=== PATIENT | male | born 1930 | race Caucasian/White ===

== ENCOUNTER 2018-02-22 18:39 | Inpatient (IN) | payer MEDICARE, OTHER ==
[~2018-02-22] VITALS: Ht 175.3 cm; Wt 86.2 kg
--- NOTE | ~2018-02-22 | CON ---
[address] [address] CONSULTATION Name: DANIELLA ANDRES Room: [address] IN .R.#: [id number] Admission: 02/22/18 Attend Phys: Femi Vogel MD Discharge: Date of : 32 Report #: [id number] THIS REPORT FOR: //name// CC: Andressa Vogel DATE OF SERVICE: 02/24/2018 REASON FOR CONSULTATION: Nausea, vomiting, abdominal pain and elevated lipase level. HISTORY OF PRESENT ILLNESS: This is an 88-year-old male, with history of constipation, whose reports that they have a lot of difficulty with the same at home. He has not had any bowel movements for the past 4 days and presented to hospital with nausea and vomiting. His reports that this had happened to him in the past one more time and once he got a bowel regimen, his symptoms went away. 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 The reports that this has been there for the past 8 years and has not changed in size by much. The patient is currently doing better and denies nausea and vomiting. He was able to eat a regular breakfast in the morning. A CT of abdomen and pelvis during this hospitalization showed some thickening of the small bowel, mainly in the right side of the abdomen. The patient denies any diarrhea, hematochezia or melena. PAST MEDICAL HISTORY: Significant for history of hypertension, gastroesophageal reflux disease, chronic constipation, dyslipidemia and chronic anticoagulation therapy. ALLERGIES: No known drug allergies. MEDICATIONS: Please refer to MAR. SOCIAL HISTORY: The patient is and lives at home. Denies tobacco or alcohol use. FAMILY HISTORY: Noncontributory. PHYSICAL EXAMINATION: VITAL SIGNS: Reveals blood pressure of 165/80, respirations 16, pulse 59, temperature 98.4. LUNGS: Clear. CARDIOVASCULAR: Regular. ABDOMEN: Large, soft, mildly tender to palpation in the epigastric region. [place] [address] CONSULTATION Name: DANIELLA ANDRES Room: [address] IN [facility]#: [id number] Admission: 02/22/18 Attend Phys: Femi Vogel MD Discharge: Date of : 32 Report #: [id number] LABORATORY DATA: Reveal sodium of 141, potassium 4.8, BUN is 13, creatinine 1.2, glucose is 102. AST is 18, ALT 17, alkaline phosphatase 72. Lipase on admission was 640. WBC is 4.9, hemoglobin is 12.2, platelets are 160. ASSESSMENT AND PLAN: The patient with symptoms of nausea, vomiting and abdominal pain, which has since admission has resolved. His liver function tests are all completely normal. He is known to have severe constipation in the past, which had caused similar symptoms. I think elevation of lipase is not pancreatitis and may be multifactorial as there is no evidence of pancreatitis per CT. Nevertheless, I will check his lipase again as he started his diet. If the patient does well, we will discharge him tomorrow. If he continues to have problem, we will consider a colonoscopy as he had thickening and inflammation in the small bowel. This was communicated to the patient and his and they are agreeable with plan. By: 1246 1936Navid Peter MD /nt
[2018-02-22 18:47] VITALS: BP 187/83
[2018-02-22] MEDS ORDERED: IMDUR 60 MG TAB60 M1 PO (18:51)
[2018-02-22] MEDS ORDERED: REQUIP3 MG PO (18:51)
[2018-02-22] MEDS ORDERED: ASPIR 8181 MG PO (18:51)
[2018-02-22] MEDS ORDERED: ELIQUIS5 MG PO (18:52)
[2018-02-22] MEDS ORDERED: TOPROL XL25 MG PO (18:52)
[2018-02-22] MEDS ORDERED: LOTENSIN10 MG PO (18:52)
[2018-02-22] MEDS ORDERED: CRESTOR40 MG PO (18:52)
[2018-02-22] MEDS ORDERED: ZANTAC 150MG T150 MG PO (18:53)
[2018-02-22 19:27] LABS: HEMOGLOBIN 14.1 gm/dL (14.0-18.0); MCH 30.6 pg (26.0-34.0); MCHC 33.7 g/dL (28.0-37.0); MCV 90.9 fL (80.0-100.0); MPV 8.2 fl. (7.2-11.1); NUCLEATED RBCS 0 /100WBC; PLATELET COUNT* 187 thou/uL (150-400); RBC 4.62 mil/uL (4.50-6.00); RDW-CV 13.3 % (10.5-14.5); WBC 7.5 thou/uL (4.0-11.0)
[2018-02-22 19:34] LABS: CALCIUM 8.4 mg/dL (8.5-10.1); CREATININE 1.2 mg/dL (0.6-1.3); POTASSIUM 4.5 mmol/L (3.5-5.1)
[2018-02-22 19:38] LABS: ALBUMIN 3.4 g/dL (3.4-5.0); TOTAL BILIRUBIN 0.6 mg/dL (<0.1-1.0); TOTAL PROTEIN 6.5 g/dL (6.4-8.2)
[2018-02-22 19:46] LABS: ABSOLUTE LYMPHOCYTES 0.9 thou/uL (0.8-5.3); ABSOLUTE MONOCYTES 0.2 thou/uL (0.0-1.2); ABSOLUTE NEUTROPHILS 6.5 thou/uL (1.6-8.1); PLATELET ESTIMATE ADEQUATE
[2018-02-22 20:37] LABS: INFLUENZA A ANTIGEN None Detected (None Detect); INFLUENZA B ANTIGEN None Detected (None Detect)
[2018-02-22 21:20] LABS: URINE BILIRUBIN NEGATIVE (Negative); URINE BLOOD NEGATIVE (Negative); URINE CLARITY CLEAR; URINE COLOR YELLOW; URINE GLUCOSE-RANDOM NEGATIVE (Negative); URINE KETONES NEGATIVE (Negative); URINE LEUKOCYTES-REFLEX NEGATIVE (Negative); URINE NITRITE-REFLEX NEGATIVE (Negative); URINE PROTEIN TRACE (Negative); URINE SPECIFIC GRAVITY 1.015 (1.005-1.030); URINE UROBILINOGEN 0.2 E.U./dl (0.2-1.0)
[2018-02-22 22:02] VITALS: BP 166/93
--- NOTE | 2018-02-23 05:31 | NUR ---
PT ARIVED ON UNIT AT 2215 ASSISTE TO ROOM ORIENTED TO SURROUNDINGS VS AND ASSESSMENT STABLE. PT VOICED NO COMPLAINTS AND SLEPT THROUGH THE NIGHT. WILL CONTINUE PLAN OF CARE.
[2018-02-23 07:50] VITALS: BP 132/87
--- NOTE | 2018-02-23 10:25 | EKG ---
[place] [address] ELECTROCARDIOGRAM REPORT Name: DANIELLA ANDRES Room: [address] IN .R.#: [id number] Admission: 02/22/18 Attend Phys: Femi Vogel MD Discharge: Date of : 32 Report #: [id number] THIS REPORT FOR: //name// [facility] ED Test Date: 2018-02-22 Test Time: 19:03:37 Pat Name: DANIELLA ANDRES Department: Room: [facility] Gender: M Beach Expert: AP : 1930 Requested By: Janette Junior Order Number: [id number] MD: Reynold Gardner Measurements Intervals [place] Rate: 65 P: 50 [place]: 183 QRS: 27 QRSD: 84 T: 21 QT: 423 QTc: 440 Interpretive Statements Sinus rhythm No previous ECG available for comparison Electronically Signed On 02-23-2018 10:24:58 SCREEN TENDER by Reynold Gardner [email or web address] <ELECTRONICALLY SIGNED> By: Reynold Gardner MD, LOCATED WITHIN [facility] 02/23/18 1024 02 02 Reynold Gardner MD, FACC /EPI
--- NOTE | 2018-02-23 14:06 | NUR ---
MINERAL OIL ENEMA GIVEN DIRECTED TO PATIENT. NO RETURN OF STOOL AT PRESENT TIME. AWATIING GI CONSULT. UPDATED ON PLAN OF CARE. PATIENT RESTING AT PRESENT TIME.
[2018-02-23 16:19] VITALS: BP 122/66
--- NOTE | 2018-02-23 18:26 | NUR ---
PATIENT HAS BEEN A/O X 4, SLIGHTLY FORGETFUL AT TIMES, [place]. PATIENT HAS DENIED N/V, OR ABDOMINAL PAIN. TOLERATING DIET. UP AD TORRES IN ROOM. IV FLUIDS CONTINUE TO INFUSE. PATIENT GIVEN MINERAL OIL WITHOUT ANY RESULTS. STARTED GOLYTELY THIS EVENING, GI CONSULT PENDING. PATIENT'S VITALS STABLE. AT BEDSIDE THROUGHOUT THE SHIFT, UPDATED ON ALL NEW ORDERS AND PLAN OF CARE. HOURLY ROUNDING COMPLETED. CALL LIGHT WITHIN REACH. WILL CONTINUE WITH PLAN OF CARE.
[2018-02-23 20:15] VITALS: BP 149/87
[2018-02-24 06:40] LABS: HEMATOCRIT 36.3 % (42.0-52.0); HEMOGLOBIN 12.2 gm/dL (14.0-18.0); MCH 30.8 pg (26.0-34.0); MCHC 33.7 g/dL (28.0-37.0); MCV 91.5 fL (80.0-100.0); RBC 3.97 mil/uL (4.50-6.00); RDW-CV 13.2 % (10.5-14.5); WBC 4.9 thou/uL (4.0-11.0)
[2018-02-24 06:44] LABS: CALCIUM 7.9 mg/dL (8.5-10.1); CREATININE 1.2 mg/dL (0.6-1.3); POTASSIUM 4.8 mmol/L (3.5-5.1)
[2018-02-24 06:55] LABS: ALBUMIN 2.9 g/dL (3.4-5.0); DIRECT BILIRUBIN 0.1 mg/dL (<0.1-0.3); MAGNESIUM 2.1 mg/dL (1.8-2.4); TOTAL BILIRUBIN 0.4 mg/dL (<0.1-1.0); TOTAL PROTEIN 5.5 g/dL (6.4-8.2)
--- NOTE | 2018-02-24 07:25 | NUR ---
PT SLEPT MOST OF SHIFT. ASSESSMENT DOCUMENTED. MEDS GIVEN PER E-APR. NO REPORTS OF PAIN OR NAUSEA THIS SHIFT. PT HAD SEVERAL LARGE LIQUID BOWEL MOVEMENTS THIS SHIFT. PT BECAME VERY WHEEZY THIS AM AND WAS HAVING DIFFICULTY CATCHING BREATH WHEN WALKING FROM BATHROOM TO BACK TO BED, DR NOTIFIED, ORDERS RECIEVED, PT SALINE LOCKED. WILL CONTINUE WITH PLAN OF CARE.
[2018-02-24 08:00] VITALS: BP 165/80
--- NOTE | 2018-02-24 16:28 | NUR ---
SHIFT NOTE - PRESENT AT BEDSIDE FOR MOST OF THIS SHIFT. GI WANTING PT TO STAY TONIGHT AND POSSIBLE DC IN AM. WILL CONTINUE TO MONITOR.
[2018-02-24 16:45] VITALS: BP 153/72
[2018-02-24 20:00] VITALS: BP 119/48
--- NOTE | 2018-02-25 05:49 | NUR ---
PT SLEPT MOST OF SHIFT. ASSESSMENT DOCUMENTED. MEDS GIVEN PER E-MAR. IV PATENT. PTS STAYED AT BEDSIDE ALL NIGHT. NO REPORTS OF PAIN OR NAUSEA. WILL CONTINUE WITH PLAN OF CARE.
[2018-02-25 08:00] VITALS: BP 174/78
[2018-02-25 14:23] VITALS: BP 174/78
--- NOTE | 2018-02-25 15:05 | NUR ---
DISCHARGE NOTE - REVIEWED DC PAPERS WITH PT AND SPOUSE. ALL BELONGINGS SENT WITH PT. NO QUESTIONS. IV REMOVED.
== END 2018-02-25 15:08 | disposition home or self-care (01) | DRG 439 ==
LOC: M.ERS 18:39 → M.3W 21:25 → M.TBA-ER 21:25 → M.3W 22:20
PROVIDERS: Internal Medicine; Nurse Practitioner Family; ADMIT Family Medicine
DX: K85.90 Acute pancreatitis without necrosis or infection, unspecified (principal); D68.59 Other primary thrombophilia; E44.1 Mild protein-calorie malnutrition; K21.9 Gastro-esophageal reflux disease without esophagitis; I10 Essential (primary) hypertension; E78.5 Hyperlipidemia, unspecified; K59.00 Constipation, unspecified; I48.91 Unspecified atrial fibrillation; I25.2 Old myocardial infarction; Z68.28 Body mass index [BMI] 28.0-28.9, adult; Z86.73 Personal history of transient ischemic attack (TIA), and cerebral infarction without residual deficits; Z95.5 Presence of coronary angioplasty implant and graft; Z90.49 Acquired absence of other specified parts of digestive tract; Z79.01 Long term (current) use of anticoagulants; Z79.82 Long term (current) use of aspirin; Z79.899 Other long term (current) drug therapy

== ENCOUNTER → 2018-07-10 | Outpatient (CLI) | payer MEDICARE, OTHER ==
[~2018-07-10] MED LIST: ASPIR 8181 MG PO; CRESTOR40 MG PO; ELIQUIS5 MG PO; IMDUR 60 MG TAB60 M1 PO; LOTENSIN10 MG PO; REQUIP3 MG PO; TOPROL XL25 MG PO; ZANTAC 150MG T150 MG PO
== END ==
LOC: M.MRI 10:57
DX: M19.072 Primary osteoarthritis, left ankle and foot (principal); Z87.39 Personal history of other diseases of the musculoskeletal system and connective tissue

== ENCOUNTER 2018-07-28 16:03 | Emergency (ER) | payer MEDICARE, OTHER ==
[~2018-07-28] VITALS: Ht 172.7 cm; Wt 88.0 kg
[2018-07-28 16:41] LABS: ABSOLUTE BASOPHILS 0.1 thou/uL (0.0-0.2); ABSOLUTE EOSINOPHILS 0.3 thou/uL (0.0-0.7); ABSOLUTE LYMPHOCYTES 1.5 thou/uL (0.8-5.3); ABSOLUTE MONOCYTES 0.6 thou/uL (0.0-1.2); ABSOLUTE NEUTROPHILS 2.4 thou/uL (1.6-8.1); BASOPHILS 1.8 %; EOSINOPHILS 7.1 %; HEMATOCRIT 37.7 % (42.0-52.0); HEMOGLOBIN 12.6 gm/dL (14.0-18.0); LYMPHOCYTES 30.3 %; MCH 30.1 pg (26.0-34.0); MCHC 33.3 g/dL (28.0-37.0); MCV 90.6 fL (80.0-100.0); MONOCYTES 11.4 %; MPV 8.2 fl. (7.2-11.1); NUCLEATED RBCS 0 /100WBC; PLATELET COUNT* 179 thou/uL (150-400); POLYS 49.4 %; RBC 4.17 mil/uL (4.50-6.00); RDW-CV 13.6 % (10.5-14.5); WBC 4.9 thou/uL (4.0-11.0)
[2018-07-28 16:47] LABS: CALCIUM 8.3 mg/dL (8.5-10.1); CREATININE 1.3 mg/dL (0.6-1.3); POTASSIUM 4.6 mmol/L (3.5-5.1)
[2018-07-28 16:51] LABS: ALBUMIN 3.3 g/dL (3.4-5.0); TOTAL BILIRUBIN 0.3 mg/dL (<0.1-1.0); TOTAL PROTEIN 6.2 g/dL (6.4-8.2)
[2018-07-28 17:44] VITALS: BP 130/94
== END 2018-07-28 17:44 | disposition home or self-care (01) ==
LOC: M.ERS 16:03
PROVIDERS: Nurse Practitioner Family
DX: R19.4 Change in bowel habit (principal); I10 Essential (primary) hypertension; E78.5 Hyperlipidemia, unspecified; Z90.49 Acquired absence of other specified parts of digestive tract

== ENCOUNTER 2019-04-01 16:19 | Inpatient (IN) | payer OTHER ==
[~2019-04-01] VITALS: Ht 167.6 cm; Wt 114.8 kg
[2019-04-01 16:33] VITALS: BP 196/85
[2019-04-01 18:20] LABS: INFLUENZA A ANTIGEN Negative (Negative); INFLUENZA B ANTIGEN Negative (Negative)
[2019-04-01 18:47] LABS: ABSOLUTE BASOPHILS 0.1 thou/uL (0.0-0.2); ABSOLUTE EOSINOPHILS 0.1 thou/uL (0.0-0.7); ABSOLUTE LYMPHOCYTES 0.3 thou/uL (0.8-5.3); ABSOLUTE MONOCYTES 0.6 thou/uL (0.0-1.2); ABSOLUTE NEUTROPHILS 4.7 thou/uL (1.6-8.1); BASOPHILS 1.2 %; HEMATOCRIT 38.4 % (42.0-52.0); HEMOGLOBIN 13.1 gm/dL (14.0-18.0); MCH 30.5 pg (26.0-34.0); MCHC 34.2 g/dL (28.0-37.0); MCV 89.1 fL (80.0-100.0); MONOCYTES 9.8 %; MPV 7.8 fl. (7.2-11.1); NUCLEATED RBCS 0 /100WBC; PLATELET COUNT* 168 thou/uL (150-400); RBC 4.31 mil/uL (4.50-6.00); RDW-CV 13.6 % (10.5-14.5); WBC 5.8 thou/uL (4.0-11.0)
[2019-04-01 19:06] LABS: CALCIUM 8.2 mg/dL (8.5-10.1); CREATININE 1.2 mg/dL (0.6-1.3); POTASSIUM 4.3 mmol/L (3.5-5.1)
[2019-04-01 19:08] LABS: URINE BILIRUBIN NEGATIVE (Negative); URINE BLOOD TRACE (Negative); URINE CLARITY CLEAR; URINE COLOR YELLOW; URINE GLUCOSE-RANDOM NEGATIVE (Negative); URINE KETONES NEGATIVE (Negative); URINE LEUKOCYTES-REFLEX NEGATIVE (Negative); URINE NITRITE-REFLEX NEGATIVE (Negative); URINE PROTEIN 2+ (Negative); URINE UROBILINOGEN 0.2 E.U./dl (0.2-1.0)
[2019-04-01 19:16] LABS: ALBUMIN 3.6 g/dL (3.4-5.0); TOTAL BILIRUBIN 0.8 mg/dL (<0.1-1.0); TOTAL PROTEIN 6.7 g/dL (6.4-8.2)
[2019-04-01 19:34] LABS: BACTERIA-REFLEX 1-9 Few /HPF (None Seen); CASTS None Seen /LPF (None Seen); CRYSTALS None Seen /LPF (None Seen); SQUAMOUS 0-3 Few /LPF (0-3); URINE RBC 0-2 Rare /HPF (0-2); URINE WBC-REFLEX 0-5 Rare /HPF (0-5)
[2019-04-01 22:20] VITALS: BP 162/74
[2019-04-01 22:30] VITALS: BP 153/76
[2019-04-02 04:30] VITALS: BP 174/73
[2019-04-02 08:00] VITALS: BP 161/67
[2019-04-02 16:08] VITALS: BP 110/83
[2019-04-02 16:24] VITALS: BP 152/88
--- NOTE | 2019-04-02 16:35 | EKG ---
[place] [address] ELECTROCARDIOGRAM REPORT Name: DANIELLA ANDRES Room: [address] ADM IN .R.#: [id number] Admission: 04/01/19 Attend Phys: Amol Sky Discharge: Date of : 32 Date of Service: 04/01/19 1808 Report #: [id number] THIS REPORT FOR: //name// [facility] ED Test Date: 2019-04-01 Test Time: 18:08:13 Pat Name: DANIELLA ANDRES Department: Room: [facility] Gender: M Caddie Supervisor: LEEROY : 1930 Requested By: Ana Campos Order Number: [id number] MD: Sinan Moise Measurements Intervals [place] Rate: 64 P: 224 [place]: 65 QRS: 35 QRSD: 112 T: 42 QT: 400 QTc: 413 Interpretive Statements Sinus or ectopic atrial rhythm Short AL interval Probable left atrial enlargement Borderline intraventricular conduction delay Compared to ECG 02/22/2018 19:03:37 Ectopic atrial rhythm now present Short AL interval now present ST (T wave) deviation now present Electronically Signed On 04-02-2019 16:34:02 CASINO FLOORPERSON by Sinan Moise [email or web address] <ELECTRONICALLY SIGNED> By: Sinan Moise MD, [facility] 04/02/19 1634 07 180 Sinan Moise MD, [facility] /EPI
[2019-04-02 20:00] VITALS: BP 101/72
[2019-04-02 20:53] VITALS: BP 127/76
[2019-04-03 00:18] VITALS: BP 110/61
[2019-04-03 04:05] LABS: HEMATOCRIT 38.4 % (42.0-52.0); MCH 30.3 pg (26.0-34.0); MCHC 33.9 g/dL (28.0-37.0); MCV 89.4 fL (80.0-100.0); MPV 8.2 fl. (7.2-11.1); RBC 4.29 mil/uL (4.50-6.00); RDW-CV 13.7 % (10.5-14.5); WBC 7.3 thou/uL (4.0-11.0)
[2019-04-03 04:32] VITALS: BP 120/78
[2019-04-03 05:07] LABS: ALBUMIN 3.2 g/dL (3.4-5.0); CALCIUM 8.4 mg/dL (8.5-10.1); CREATININE 1.3 mg/dL (0.6-1.3); MAGNESIUM 1.9 mg/dL (1.8-2.4); PHOSPHORUS* 3.3 mg/dL (2.5-4.9); POTASSIUM 3.2 mmol/L (3.5-5.1)
[2019-04-03 08:00] VITALS: BP 151/72
--- NOTE | 2019-04-03 10:43 | EKG ---
[place] [address] ELECTROCARDIOGRAM REPORT Name: DANIELLA ANDRES Room: [address] ADM IN [facility].#: [id number] Admission: 04/01/19 Attend Phys: Amol Sky Discharge: Date of : 32 Date of Service: 04/02/19 1415 Report #: [id number] THIS REPORT FOR: //name// [facility] Test Date: 2019-04-02 Test Time: 14:15:27 Pat Name: DANIELLA ANDRES Department: Room: [address] Gender: M Track Coach: : 1930 Requested By: Eric Pope Order Number: [id number] Dae MD: Sinan Moise Measurements Intervals [place] Rate: 133 P: [place]: QRS: 39 QRSD: 91 T: 214 QT: 260 QTc: 387 Interpretive Statements Atrial fibrillation Abnormal R-wave progression, early transition Repolarization abnormality, prob rate related Electronically Signed On 04-03-2019 10:41:56 APPEALS REPRESENTATIVE by Sinan Moise [email or web address] <ELECTRONICALLY SIGNED> By: Sinan Moise MD, FACC 04/03/19 1041 1415 1415 Sinan Moise MD, [facility] /EPI
[2019-04-03 13:30] VITALS: BP 191/82
--- NOTE | 2019-04-03 13:36 | 2DMMODE ---
[place] [address] 2 D/M-MODE ECHOCARDIOGRAM Name: DANIELLA ANDRES Room: [address] IN [place].#: [id number] Admission: 04/01/19 Attend Phys: Amol Sky Discharge: Date of : 32 Date of Service: 04/03/19 1335 Report #: [id number] THIS REPORT FOR: cc: Andressa Douglas Maggie M. DO Blick, David R. MD [facility] ~ APPROVED REPORT Study performed: 04/03/2019 10:42:25 EXAM: Comprehensive 2D, Doppler, and color-flow Echocardiogram Patient Location: In-Patient Room #: 226 Status: routine BSA: 2.24 HR: 72 bpm BP: 156/66 mmHg Rhythm: NSR Other Information Study Quality: Adequate Indications Atrial Fibrillation 2D Dimensions IVSd: 13.62 (7-11mm) LVOT Diam: 22.60 (18-24mm) LVDd: 47.12 mm PWd: 13.78 (7-11mm) Ascending Ao: 32.35 (22-36mm) LVDs: 21.91 (25-40mm) Aortic Root: 35.83 mm Volumes Left Atrial Volume (Systole) LA ESV Index: 22.20 mL/m2 Aortic Valve AoV Peak Keny.: 1.67 m/s AO Peak Gr.: 11.22 mmHg LVOT Max P.82 mmHg AO Mean Gr.: 6.21 mmHg LVOT Mean P.39 mmHg LVOT Max V: 1.57 m/s AO V2 VTI: 31.67 cm LVOT Mean V: 0.94 m/s LOUISE (VTI): 4.11 cm2 LVOT V1 VTI: 32.48 [place] [address] 2 D/M-MODE ECHOCARDIOGRAM Name: DANIELLA ANDRES Room: [address] IN .R.#: [id number] Admission: 04/01/19 Attend Phys: Amol Sky Discharge: Date of : 32 Date of Service: 04/03/19 1335 Report #: [id number] Mitral Valve E/A Ratio: 0.77 MV Decel. Time: 279.71 ms MV E Max Keny.: 0.66 m/s MV PHT: 81.12 ms MVA (PHT): 2.71 cm2 Pulmonary Valve PV Peak Keny.: 0.84 m/s PV Peak Gr.: 2.84 mmHg Left Ventricle The left ventricle is normal size. endocardium not well visualized Mild concentric left ventricular hypertrophy. Left ventricular systolic function is normal. The left ventricular ejection fraction is within the normal range. LVEF is 55-60%. Grade I - abnormal relaxation pattern. Right Ventricle The right ventricle is normal size. The right ventricular systolic function is normal. Atria The left atrium size is normal. The right atrium size is normal. Aortic Valve The aortic valve is normal in structure. trace aortic regurgitation is present. There is no aortic valvular stenosis. Mitral Valve The mitral valve is normal in structure. There is no mitral valve regurgitation noted. No evidence of mitral valve stenosis. Tricuspid Valve The tricuspid valve is normal in structure. There is no tricuspid valve regurgitation noted. Pulmonic Valve Pulmonic valve is not well visualized. There is no pulmonic valvular regurgitation. Great Vessels The aortic root is normal in size. IVC is not well [place] [address] 2 D/M-MODE ECHOCARDIOGRAM Name: DANIELLA ANDRES Room: [address] IN [facility]#: [id number] Admission: 04/01/19 Attend Phys: Amol Sky Discharge: Date of : 32 Date of Service: 04/03/19 1335 Report #: [id number] There is no pericardial effusion. <Conclusion> LVEF is 55-60%. Mild concentric left ventricular hypertrophy. <ELECTRONICALLY SIGNED> By: Sinan Moise MD, FAC 04/03/19 1335 34 Sinan Moise MD, [facility] /INF
--- NOTE | 2019-04-03 15:16 | CON ---
[facility] [address] [place] [address] CONSULTATION Name: DANIELLA ANDRES Room: [address] IN M.R.#: [id number] Admission: 04/01/19 Attend Phys: Seth No Discharge: Date of : 32 Report #: [id number] THIS REPORT FOR: //name// cc: Andressa Douglas Maggie M. DO ~ THIS REPORT FOR: //name// CC: Andressa Sky DATE OF SERVICE: 04/03/2019 CARDIOLOGY CONSULTATION HISTORY OF PRESENT ILLNESS: The patient is an 89-year-old white male who I was asked to see in the hospital after he had an episode of atrial fibrillation. The patient has an extensive and complicated past medical history. Most of his care had been performed in [place], [place]. He and his previously lived in [place], [place], but moved to the [place] area about a year ago to live next door to their daughter. The patient is not very active because of his age and uses a walker. According to , he had a previous coronary stent placed years ago. Following knee surgery, he apparently had a heart attack and had another stent placed. He has had no recent chest pain. He has been on Eliquis, although the patient and his denied any history of an irregular heartbeat, need for cardioversion or atrial fibrillation. The patient was doing well until 2 days ago had been vomiting. He then became short of breath and a cough. He went to see his doctor 2 days ago and was sent to the Emergency Room and admitted. He was felt to have pneumonia. Last night on the monitor, the patient went into atrial fibrillation with rapid ventricular response rate. He was placed on IV diltiazem. He then converted to sinus rhythm. I was asked to see him for further evaluation and treatment. PAST MEDICAL HISTORY: Significant for ankle surgery, knee surgery. He has had cholecystectomy. MEDICATIONS: On admission included aspirin, Imdur, Requip, Eliquis, metoprolol, Crestor, Lotensin, ranitidine. ALLERGIES: He had no known drug allergies. FAMILY HISTORY: Negative for heart disease. SOCIAL HISTORY: He is . He and his live now in [place]. No smoking or alcohol abuse. REVIEW OF SYSTEMS: He apparently has had a previous [place] [address] CONSULTATION Name: DANIELLA ANDRES Room: [address]#: [id number] Admission: 04/01/19 Attend Phys: Seth No Discharge: Date of : 32 Report #: [id number] asthma, liver disease, kidney disease, cancer, psychiatric illness. PHYSICAL EXAMINATION: GENERAL: Revealed an elderly male, lying in bed, appeared in mild respiratory distress. VITAL SIGNS: He had a blood pressure of 130/80, pulse is 90. He is afebrile. HEENT: He was anicteric. Conjunctivae are pink. Mucous membranes were moist. NECK: Veins do not appear distended. CHEST: Revealed expiratory wheezes. CARDIAC: Regular rate and rhythm, no murmur. ABDOMEN: Soft. EXTREMITIES: Had no edema. No posterior tibial pulse palpated. SKIN: Cool and dry. NEUROLOGIC: Nonfocal. RADIOLOGICAL DATA: His ECG on admission showed a sinus rhythm, nonspecific ST-segment changes. On the monitor last night, he went into rapid atrial fibrillation. He is now in sinus rhythm. Additional workup included a portable chest x-ray on admission that showed no acute abnormality. He had a CT scan of the head without contrast because of his previous stroke that showed atrophy, previous infarction, small vessel disease. LABORATORY DATA: Sodium 141, potassium 3.2, BUN 28, creatinine 1.3. Liver function studies were normal. Troponin 0.06. BNP 2791. TSH 0.4. White blood cell count 7.3, hemoglobin 13.1. IMPRESSION AND RECOMMENDATIONS: 1. Bronchitis. The patient noted to be wheezing. 2. Coronary artery disease. Previous stent. No recent angina. Since the patient is on Eliquis, I would not recommend aspirin. Since the patient is having no significant angina. I am not sure that he needs Isordil at this time. 3. Hypertension. The patient is on an UMER inhibitor and beta-joann. 4. Hyperlipidemia. The patient is on a statin drug. 5. History of atrial fibrillation. I would consider switching the patient from metoprolol to sotalol. The patient is anticoagulated with Eliquis. 6. Hard of hearing. <ELECTRONICALLY SIGNED> By: Sinan Moise MD, FACC 04/03/19 1516 0829 0900David Macrina Moise MD, FACC /nt
[2019-04-03 17:35] VITALS: BP 180/72
[2019-04-03 20:20] VITALS: BP 136/73
[2019-04-04] VITALS (7 sets, daily range): BP systolic 133–160; BP diastolic 48–98
--- NOTE | 2019-04-04 12:51 | EKG ---
[place] [address] ELECTROCARDIOGRAM REPORT Name: DANIELLA ANDRES Room: [address] ADM IN ..#: [id number] Admission: 04/01/19 Attend Phys: Amol Sky Discharge: Date of : 32 Date of Service: 04/04/19 1050 Report #: [id number] THIS REPORT FOR: //name// [facility] Test Date: 2019-04-04 Test Time: 10:50:06 Pat Name: DANIELLA ANDRES Department: Room: [facility] Gender: M Mangle Catcher: Patti : 1930 Requested By: Sinan Moise Order Number: [id number] Dae MD: Sinan Moise Measurements Intervals [place] Rate: 63 P: 51 [place]: 176 QRS: 22 QRSD: 87 T: 44 QT: 471 QTc: 483 Interpretive Statements Sinus rhythm Inferior infarct, old Baseline wander in lead(s) V3 Compared to ECG 04/02/2019 14:15:27 Atrial fibrillation no longer present Early repolarization no longer present Electronically Signed On 04-04-2019 12:50:49 FLIGHT OPERATION COORDINATOR by Sinan Moise [email or web address] <ELECTRONICALLY SIGNED> By: Sinan Moise MD, FACC 04/04/19 1250 1050 1050 Sinan Moise MD, FACC /EPI
[2019-04-05 05:00] VITALS: BP 133/57
[2019-04-05 05:09] LABS: HEMATOCRIT 39.2 % (42.0-52.0); HEMOGLOBIN 13.4 gm/dL (14.0-18.0); MCH 30.6 pg (26.0-34.0); MCHC 34.3 g/dL (28.0-37.0); MCV 89.1 fL (80.0-100.0); MPV 8.3 fl. (7.2-11.1); RBC 4.39 mil/uL (4.50-6.00); RDW-CV 13.2 % (10.5-14.5); WBC 2.2 thou/uL (4.0-11.0)
[2019-04-05 05:36] LABS: ALBUMIN 3.1 g/dL (3.4-5.0); CALCIUM 8.5 mg/dL (8.5-10.1); CREATININE 1.4 mg/dL (0.6-1.3); MAGNESIUM 2.2 mg/dL (1.8-2.4); PHOSPHORUS* 4.4 mg/dL (2.5-4.9); POTASSIUM 4.8 mmol/L (3.5-5.1)
[2019-04-05 08:00] VITALS: BP 157/78
--- NOTE | 2019-04-05 09:47 | EKG ---
[place] [address] ELECTROCARDIOGRAM REPORT Name: DANIELLA ANDRES Room: [address] ADM IN ..#: [id number] Admission: 04/01/19 Attend Phys: Amol Sky Discharge: Date of : 32 Date of Service: 04/05/1931 Report #: [id number] THIS REPORT FOR: //name// [facility] Test Date: 2019-04-05 Test Time: 08:33:14 Pat Name: DANIELLA ANDRES Department: Room: [address] Gender: M Gypsum Block Setter: SHERI : 1930 Requested By: Sinan Moise Order Number: [id number] Dae MD: Sinan Moise Measurements Intervals [place] Rate: 57 P: 52 [place]: 176 QRS: 19 QRSD: 109 T: 29 QT: 502 QTc: 489 Interpretive Statements Sinus rhythm nonspecific st changes Borderline prolonged QT interval Compared to ECG 04/04/2019 10:50:06 no change Electronically Signed On 04-05-2019 9:46:15 SNATH HANDLE ASSEMBLER by Sinan Moise [email or web address] <ELECTRONICALLY SIGNED> By: Sinan Moise MD, FAC 04/05/19 0946 2 2 Sinan Moise MD, [facility] /EPI
[2019-04-05 12:00] VITALS: BP 123/59
[2019-04-05] MEDS ORDERED: CEFDINIR300 MG PO (13:43)
[2019-04-05] MEDS ORDERED: SORINE 80 MG TA80 M1 PO (13:43)
[2019-04-05] MEDS ORDERED: FLONASE 0.05%50 MCG NASAL (13:43)
[2019-04-05] MEDS ORDERED: CLARITIN10 M2 PO (13:43)
[2019-04-05] MEDS ORDERED: MUCINEX600 MG PO (13:43)
[2019-04-05] MEDS ORDERED: MEDROL DOSPAK21 TA1 PO (13:43)
[2019-04-05] MEDS ORDERED: LEVALBUTER1.25 MG/0. INH (13:43)
[2019-04-05] MEDS ORDERED: LASIX 40 MG TAB40 MG PO (13:51)
[2019-04-05] MEDS ORDERED: K-DUR 20 MEQ T20 MEQ PO (13:51)
[2019-04-05 16:56] VITALS: BP 123/59
[2019-04-05 17:01] VITALS: BP 99/58
[2019-04-09 07:13] LABS: ADENOVIRUS Negative (Negative); INFLUENZA A Positive (Negative); INFLUENZA B Negative (Negative); METAPNEUMOVIRUS Negative (Negative); PARAINFLUENZA 1 Negative (Negative); PARAINFLUENZA 2 Negative (Negative); PARAINFLUENZA 3 Negative (Negative); RHINOVIRUS Negative (Negative); RSV A Negative (Negative); RSV B Negative (Negative)
== END 2019-04-05 17:48 | DRG 291 ==
LOC: M.ERS 16:19 → M.TBA-ER 20:01 → M.2W 20:01
PROVIDERS: Family Medicine; Nurse Practitioner Family; Physician Assistant; ADMIT Internal Medicine
DX: I13.0 Hypertensive heart and chronic kidney disease with heart failure and stage 1 through stage 4 chronic kidney disease, or unspecified chronic kidney disease (principal); J18.9 Pneumonia, unspecified organism; J96.01 Acute respiratory failure with hypoxia; I50.33 Acute on chronic diastolic (congestive) heart failure; I69.354 Hemiplegia and hemiparesis following cerebral infarction affecting left non-dominant side; I48.20 Chronic atrial fibrillation, unspecified; I73.9 Peripheral vascular disease, unspecified; E78.5 Hyperlipidemia, unspecified; Z96.651 Presence of right artificial knee joint; J40 Bronchitis, not specified as acute or chronic; I25.10 Atherosclerotic heart disease of native coronary artery without angina pectoris; N18.9 Chronic kidney disease, unspecified; G25.81 Restless legs syndrome; J06.9 Acute upper respiratory infection, unspecified; F03.90 Unspecified dementia, unspecified severity, without behavioral disturbance, psychotic disturbance, mood disturbance, and anxiety; Z79.82 Long term (current) use of aspirin; Z95.1 Presence of aortocoronary bypass graft; Z79.51 Long term (current) use of inhaled steroids; Z79.899 Other long term (current) drug therapy; Z79.01 Long term (current) use of anticoagulants; Z95.5 Presence of coronary angioplasty implant and graft; I25.2 Old myocardial infarction; Z90.49 Acquired absence of other specified parts of digestive tract; Z79.2 Long term (current) use of antibiotics; Z28.21 Immunization not carried out because of patient refusal

== ENCOUNTER 2019-04-30 15:38 | Inpatient (IN) | payer OTHER ==
[~2019-04-30] VITALS: Ht 172.7 cm; Wt 88.9 kg
[~2019-04-30 15:38] MED LIST changes: +CEFDINIR300 MG PO; +CLARITIN10 M2 PO; +FLONASE 0.05%50 MCG NASAL; +K-DUR 20 MEQ T20 MEQ PO; +LASIX 40 MG TAB40 MG PO; +LEVALBUTER1.25 MG/0. INH; +MEDROL DOSPAK21 TA1 PO; +MUCINEX600 MG PO; +SORINE 80 MG TA80 M1 PO
[2019-04-30 15:41] VITALS: BP 203/85
[2019-04-30 16:20] LABS: INFLUENZA A ANTIGEN Negative (Negative); INFLUENZA B ANTIGEN Negative (Negative)
[2019-04-30] MEDS ORDERED: LASIX 40 MG TAB40 MG PO (16:21)
[2019-04-30 16:29] LABS: HEMATOCRIT 35.2 % (42.0-52.0); MCH 30.8 pg (26.0-34.0); MCHC 34.1 g/dL (28.0-37.0); MCV 90.2 fL (80.0-100.0); MPV 7.9 fl. (7.2-11.1); NUCLEATED RBCS 0 /100WBC; PLATELET COUNT* 146 thou/uL (150-400); RDW-CV 13.7 % (10.5-14.5); WBC 4.6 thou/uL (4.0-11.0)
[2019-04-30 16:38] LABS: APTT 25.1 Seconds (25.0-31.3); INR 1.1; PROTIME 11.5 Seconds (9.20-11.50)
[2019-04-30 16:47] LABS: CREATININE 1.2 mg/dL (0.6-1.3)
[2019-04-30 16:58] LABS: ALBUMIN 3.1 g/dL (3.4-5.0); TOTAL BILIRUBIN 0.4 mg/dL (<0.1-1.0); TOTAL PROTEIN 6.1 g/dL (6.4-8.2)
[2019-04-30 17:03] LABS: ABSOLUTE EOSINOPHILS 0.7 thou/uL (0.0-0.7); ABSOLUTE LYMPHOCYTES 1.3 thou/uL (0.8-5.3); ABSOLUTE MONOCYTES 0.3 thou/uL (0.0-1.2); ABSOLUTE NEUTROPHILS 2.2 thou/uL (1.6-8.1); PLATELET ESTIMATE ADEQUATE; POIKILOCYTOSIS 1+
[2019-04-30 19:07] VITALS: BP 189/85
[2019-04-30 20:00] VITALS: BP 185/80
[2019-05-01] VITALS: BP 181/69
[2019-05-01 04:00] VITALS: BP 170/81
[2019-05-01 08:00] VITALS: BP 176/112
--- NOTE | 2019-05-01 09:25 | EKG ---
[place] [address] ELECTROCARDIOGRAM REPORT Name: DANIELLA ANDRES Room: [address] ADM IN ..#: [id number] Admission: 04/30/19 Attend Phys: Do Camacho, Discharge: Date of : 32 Date of Service: 04/30/19 1546 Report #: [id number] THIS REPORT FOR: //name// [facility] ED Test Date: 2019-04-30 Test Time: 15:46:57 Pat Name: DANIELLA ANDRES Department: Room: [facility] Gender: M Cargo Supervisor: KENNEDY : 1930 Requested By: Amol Handy Order Number: [id number] MD: Sinan Moise Measurements Intervals [place] Rate: 54 P: [place]: QRS: 22 QRSD: 108 T: 33 QT: 453 QTc: 430 Interpretive Statements sinus bradycardia Compared to ECG 04/05/2019 08:33:14 ST (T wave) deviation no longer present Electronically Signed On 05-01-2019 9:23:55 CDT by Sinan Moise [email or web address] <ELECTRONICALLY SIGNED> By: Sinan Moise MD, FACC 05/01/19 0923 1546 1546 Sinan Moise MD, [facility] /EPI
[2019-05-01 12:20] VITALS: BP 146/77
[2019-05-01 16:47] VITALS: BP 135/66
[2019-05-01 20:00] VITALS: BP 132/72
[2019-05-02] VITALS: BP 135/95
[2019-05-02 04:00] VITALS: BP 171/79
[2019-05-02 05:44] LABS: HEMOGLOBIN 12.7 gm/dL (14.0-18.0); MCH 30.9 pg (26.0-34.0); MCHC 34.4 g/dL (28.0-37.0); MPV 8.7 fl. (7.2-11.1); RBC 4.11 mil/uL (4.50-6.00); RDW-CV 13.6 % (10.5-14.5); WBC 9.7 thou/uL (4.0-11.0)
[2019-05-02 06:01] LABS: ALBUMIN 3.3 g/dL (3.4-5.0); CALCIUM 8.4 mg/dL (8.5-10.1); CREATININE 1.6 mg/dL (0.6-1.3); MAGNESIUM 2.2 mg/dL (1.8-2.4); POTASSIUM 4.1 mmol/L (3.5-5.1); TOTAL BILIRUBIN 0.3 mg/dL (<0.1-1.0); TOTAL PROTEIN 6.4 g/dL (6.4-8.2)
--- NOTE | 2019-05-02 08:51 | EKG ---
[place] [address] ELECTROCARDIOGRAM REPORT Name: DANIELLA ANDRES Room: [address] ADM IN ..#: [id number] Admission: 04/30/19 Attend Phys: Do Camacho, Discharge: Date of : 32 Date of Service: 05/01/19 1010 Report #: [id number] THIS REPORT FOR: //name// [facility] Test Date: 2019-05-01 Test Time: 10:10:07 Pat Name: DANIELLA ANDRES Department: Room: [facility] Gender: M Transportation Mechanic: 1883 : 1930 Requested By: Do Camacho Order Number: [id number] Dae MD: Sinan Moise Measurements Intervals [place] Rate: 64 P: 56 [place]: 193 QRS: 27 QRSD: 98 T: 29 QT: 460 QTc: 475 Interpretive Statements Sinus rhythm Compared to ECG 04/30/2019 15:46:57 Sinus bradycardia no longer present Electronically Signed On 05-02-2019 8:50:14 CDT by Sinan Moise [email or web address] <ELECTRONICALLY SIGNED> By: Sinan Moise MD, FACC 05/02/19 0850 1010 1010 Sinan Moise MD, [facility] /EPI
--- NOTE | 2019-05-02 11:07 | EKG ---
[place] [address] ELECTROCARDIOGRAM REPORT Name: DANIELLA ANDRES Room: [address] ADM IN .R.#: [id number] Admission: 04/30/19 Attend Phys: Do Camacho, Discharge: Date of : 32 Date of Service: 05/02/19 0406 Report #: [id number] THIS REPORT FOR: //name// [facility] Test Date: 2019-05-02 Test Time: 04:06:25 Pat Name: DANIELLA ANDRES Department: Room: [address] Gender: M Metallographic Technician: CORTNEY : 1930 Requested By: Do Camacho Order Number: [id number] Dae MD: Sinan Moise Measurements Intervals [place] Rate: 59 P: [place]: QRS: 36 QRSD: 143 T: 52 QT: 513 QTc: 509 Interpretive Statements sinus bradycardia artifact noted Compared to ECG 05/01/2019 10:10:07 no change Electronically Signed On 05-02-2019 11:06:11 CDT by Sinan Moise [email or web address] <ELECTRONICALLY SIGNED> By: Sinan Moise MD, FAC 05/02/19 1106 0406 0406 Sinan Moise MD, [facility] /EPI
[2019-05-02 12:07] VITALS: BP 161/66
[2019-05-02 17:32] VITALS: BP 157/82
[2019-05-02 20:30] VITALS: BP 123/69
[2019-05-03] VITALS: BP 165/79
[2019-05-03 04:00] VITALS: BP 185/78
[2019-05-03 04:20] LABS: ABSOLUTE LYMPHOCYTES 0.8 thou/uL (0.8-5.3); ABSOLUTE MONOCYTES 0.5 thou/uL (0.0-1.2); ABSOLUTE NEUTROPHILS 6.5 thou/uL (1.6-8.1); BASOPHILS 0.1 %; HEMATOCRIT 35.4 % (42.0-52.0); HEMOGLOBIN 12.3 gm/dL (14.0-18.0); LYMPHOCYTES 9.6 %; MCH 30.8 pg (26.0-34.0); MCHC 34.6 g/dL (28.0-37.0); MCV 88.9 fL (80.0-100.0); MONOCYTES 6.6 %; MPV 8.6 fl. (7.2-11.1); NUCLEATED RBCS 0 /100WBC; PLATELET COUNT* 158 thou/uL (150-400); POLYS 83.7 %; RBC 3.98 mil/uL (4.50-6.00); RDW-CV 13.7 % (10.5-14.5); WBC 7.8 thou/uL (4.0-11.0)
[2019-05-03 04:39] LABS: ALBUMIN 3.2 g/dL (3.4-5.0); CREATININE 1.5 mg/dL (0.6-1.3); POTASSIUM 4.5 mmol/L (3.5-5.1); TOTAL BILIRUBIN 0.4 mg/dL (<0.1-1.0); TOTAL PROTEIN 6.1 g/dL (6.4-8.2)
[2019-05-03 08:00] VITALS: BP 146/68
--- NOTE | 2019-05-03 10:01 | EKG ---
[place] [address] ELECTROCARDIOGRAM REPORT Name: DANIELLA ANDRES Room: [address] ADM IN .R.#: [id number] Admission: 04/30/19 Attend Phys: Do Camacho, Discharge: Date of : 32 Date of Service: 05/03/19 0717 Report #: [id number] THIS REPORT FOR: //name// [facility] Test Date: 2019-05-03 Test Time: 07:17:28 Pat Name: DANIELLA ANDRES Department: Room: [address] Gender: M Aircraft Sales Representative: YULIET : 1930 Requested By: Amol Sky Order Number: [id number] Dae MD: Sinan Moise Measurements Intervals [place] Rate: 48 P: 66 [place]: 176 QRS: 38 QRSD: 105 T: 44 QT: 541 QTc: 484 Interpretive Statements Sinus bradycardia Consider left atrial enlargement Borderline prolonged QT interval Compared to ECG 05/02/2019 04:06:25 No significant changes Electronically Signed On 05-03-2019 9:59:48 CDT by Sinan Moise [email or web address] <ELECTRONICALLY SIGNED> By: Sinan Moise MD, [facility] 05/03/19 0959 07 6 Sinan Moise MD, [facility] /EPI
[2019-05-03 11:48] VITALS: BP 179/82
[2019-05-03 17:54] VITALS: BP 159/73
[2019-05-03 20:30] VITALS: BP 133/70
[2019-05-04 00:44] VITALS: BP 179/87
[2019-05-04 04:00] VITALS: BP 168/89
[2019-05-04 08:00] VITALS: BP 164/71
[2019-05-04 08:43] LABS: HEMOGLOBIN 12.8 gm/dL (14.0-18.0); MCH 30.7 pg (26.0-34.0); MCHC 34.6 g/dL (28.0-37.0); MCV 88.9 fL (80.0-100.0); RBC 4.16 mil/uL (4.50-6.00); RDW-CV 13.6 % (10.5-14.5); WBC 7.4 thou/uL (4.0-11.0)
[2019-05-04 08:59] LABS: ALBUMIN 3.1 g/dL (3.4-5.0); CALCIUM 7.8 mg/dL (8.5-10.1); CREATININE 1.4 mg/dL (0.6-1.3); POTASSIUM 4.2 mmol/L (3.5-5.1); TOTAL BILIRUBIN 0.5 mg/dL (<0.1-1.0); TOTAL PROTEIN 5.8 g/dL (6.4-8.2)
[2019-05-04] MEDS ORDERED: AZITHROMYCIN500 MG PO (13:24)
[2019-05-04] MEDS ORDERED: PLAQUENIL200 MG PO (13:25)
[2019-05-04 13:58] VITALS: BP 164/71
== END 2019-05-04 14:23 | disposition home or self-care (01) | DRG 177 ==
LOC: M.ERS 15:38 → M.2W 16:42 → M.TBA-ER 16:42 → M.2W 19:40
PROVIDERS: Family Medicine; Internal Medicine; ADMIT Internal Medicine
DX: J15.6 Pneumonia due to other Gram-negative bacteria (principal); J96.01 Acute respiratory failure with hypoxia; J44.1 Chronic obstructive pulmonary disease with (acute) exacerbation; N17.9 Acute kidney failure, unspecified; E44.0 Moderate protein-calorie malnutrition; J44.0 Chronic obstructive pulmonary disease with (acute) lower respiratory infection; I10 Essential (primary) hypertension; E78.5 Hyperlipidemia, unspecified; Z96.651 Presence of right artificial knee joint; G25.81 Restless legs syndrome; Z68.29 Body mass index [BMI] 29.0-29.9, adult; Z90.49 Acquired absence of other specified parts of digestive tract; Z95.1 Presence of aortocoronary bypass graft; I25.2 Old myocardial infarction; Z95.5 Presence of coronary angioplasty implant and graft; Z79.899 Other long term (current) drug therapy

== ENCOUNTER 2019-12-29 08:22 | Inpatient (IN) | payer OTHER ==
[~2019-12-29] VITALS: Ht 167.6 cm; Wt 85.2 kg
--- NOTE | ~2019-12-29 | CON ---
[address] [address] CONSULTATION Name: DANIELLA ANDRES Room: [address] IN M.R.#: [id number] Admission: 12/29/19 Attend Phys: Seth No Discharge: Date of : 32 Report #: [id number] THIS REPORT FOR: //name// cc: Andressa Douglas Maggie M. DO ~ DATE OF SERVICE: 12/30/2019 Please note at the time of this dictation, the patient was seen and physically examined by myself. REASON FOR CONSULTATION: Abdominal pain, constipation and abnormal CT. HISTORY OF PRESENT ILLNESS: This is an 89-year-old male who presented to the Emergency Room with nausea, vomiting and constipation followed with diarrhea. He states he had a very large bowel movement and then had diarrhea subsequently. He denies any bright red blood or any black in his stool at this time. He states he has been having this ongoing issue of abdominal pain with constipation for the last few months and he has been taking lactulose when needs to; he may go couple of days without a bowel movement and then he will take laxatives and then he has his bowel movement. The patient was here last 02/2018 for similar finding, in which he was seen by our office. At that time, he had a CT scan that showed inflammation in the distal small bowel suggestive of Crohn's disease, that finding is similar on CT again on this admission. He does complain of discomfort, kind of in the right lower area as well. ALLERGIES: No known drug allergies. MEDICATIONS: From home include Flonase, aspirin, furosemide, Lotensin, Crestor, Eliquis, and Requip. PAST MEDICAL HISTORY: Hypertension, hyperlipidemia, coronary artery disease. He has got a renal mass. He has had a history of [place] with stents placed and a CVA in 2004. PAST SURGICAL HISTORY: Cholecystectomy. He has had a CABG, right knee replacement, stents and a carotid endarterectomy. FAMILY HISTORY: Noncontributory. SOCIAL HISTORY: Denies any alcohol, tobacco or illegal drug use. REVIEW OF SYSTEMS: Twelve-point review of systems is essentially negative except what [place] [address] CONSULTATION Name: DANIELLA ANDRES Room: [address] IN [facility].#: [id number] Admission: 12/29/19 Attend Phys: Seth No Discharge: Date of : 32 Report #: [id number] PHYSICAL EXAMINATION: VITAL SIGNS: Temperature 37, pulse 60, respirations 18, blood pressure 101/65. HEART: Regular rate and rhythm. LUNGS: Diminished, but clear. ABDOMEN: Soft, positive bowel sounds in all 4 quadrants with tenderness noted more so on the right side. LABORATORY DATA: Hemoglobin 14.3, white count 8.7, platelets 224. CRP is normal. B12 of 348. Iron is 67, TIBC 307. GFR is 57. CT showed diffuse thickening of the distal small bowel, which is similar again to 2019. IMPRESSION: 1. Abdominal pain. 2. Nausea, vomiting. 3. Constipation, followed by diarrhea. 4. Abnormal CT findings similar to 2019. 5. Anticoagulant therapy, Eliquis secondary to atrial fibrillation. PLAN: 1. We will obtain records from [place] regarding any endoscopic evaluation. 2. Continue him on the Flagyl. 3. The patient needs a better bowel regimen once discharged. 4. Plans for a flex sig tomorrow with Dr. Peter and he will get a prep later today. 5. Further recommendations to be made once the procedure has been performed. Thank you for allowing us to participate in this patient's care. Please do not hesitate to call with any questions in regard to this consult. By: 1230 1244Navid Peter MD /nt
--- NOTE | ~2019-12-29 | PROC ---
[address] [address] PROCEDURE REPORT Name: DANIELLA ANDRES Room: [address] IN M.R.#: [id number] Admission: 12/29/19 Attend Phys: Seth No Discharge: 12/31/19 Date of : 32 Report #: [id number] THIS REPORT FOR: //name// cc: Andressa Douglas Maggie M. DO ~ For GI report, please see the Provation report in Perceptive 7 content. By: 0648Medical Records Staff KRISTY /LILY
[2019-12-29 08:22] VITALS: BP 206/90
[~2019-12-29 08:22] MED LIST changes: +AZITHROMYCIN500 MG PO; +FUROSEMIDE 20 M20 MG PO; +PLAQUENIL200 MG PO
[2019-12-29 08:53] LABS: ABSOLUTE BASOPHILS 0.1 thou/uL (0.0-0.2); ABSOLUTE EOSINOPHILS 0.2 thou/uL (0.0-0.7); ABSOLUTE LYMPHOCYTES 0.9 thou/uL (0.8-5.3); ABSOLUTE MONOCYTES 0.5 thou/uL (0.0-1.2); EOSINOPHILS 2.1 %; HEMATOCRIT 43.4 % (42.0-52.0); HEMOGLOBIN 14.3 gm/dL (14.0-18.0); LYMPHOCYTES 10.5 %; MCH 29.7 pg (26.0-34.0); MCV 89.9 fL (80.0-100.0); MONOCYTES 6.1 %; MPV 7.9 fl. (7.2-11.1); NUCLEATED RBCS 0 /100WBC; PLATELET COUNT* 224 thou/uL (150-400); POLYS 80.3 %; RBC 4.83 mil/uL (4.50-6.00); RDW-CV 13.8 % (10.5-14.5); WBC 8.7 thou/uL (4.0-11.0)
[2019-12-29 09:03] LABS: CALCIUM 8.2 mg/dL (8.5-10.1); CREATININE 1.2 mg/dL (0.6-1.3); POTASSIUM 3.9 mmol/L (3.5-5.1)
[2019-12-29 09:07] LABS: ALBUMIN 3.5 g/dL (3.4-5.0); TOTAL BILIRUBIN 0.7 mg/dL (<0.1-1.0); TOTAL PROTEIN 6.8 g/dL (6.4-8.2)
[2019-12-29 10:23] LABS: URINE BILIRUBIN NEGATIVE (Negative); URINE BLOOD TRACE (Negative); URINE CLARITY CLEAR; URINE COLOR YELLOW; URINE GLUCOSE-RANDOM TRACE (Negative); URINE KETONES NEGATIVE (Negative); URINE LEUKOCYTES-REFLEX NEGATIVE (Negative); URINE NITRITE-REFLEX NEGATIVE (Negative); URINE PROTEIN 1+ (Negative); URINE SPECIFIC GRAVITY 1.015 (1.005-1.030); URINE UROBILINOGEN 0.2 E.U./dl (0.2-1.0)
[2019-12-29 10:34] LABS: SQUAMOUS 0-3 Few /LPF (0-3)
[2019-12-29 10:35] LABS: BACTERIA-REFLEX 1-9 Few /HPF (None Seen); CASTS None Seen /LPF (None Seen); CRYSTALS None Seen /LPF (None Seen); MUCUS None Seen strn/LPF (None Seen); URINE RBC None Seen /HPF (0-2); URINE WBC-REFLEX 0-5 Rare /HPF (0-5)
[2019-12-29 13:45] LABS: % SATURATION 22 % (20-39); IRON 67 ug/dL (50-175)
[2019-12-29 14:41] VITALS: BP 136/66
[2019-12-29 16:05] VITALS: BP 153/63
[2019-12-29 16:29] VITALS: BP 138/81
[2019-12-29] MEDS ORDERED: ASA81BEC PO (16:50)
[2019-12-29] MEDS ORDERED: FLONASE 0.05%50 MCG NARES (16:53)
[2019-12-29 20:00] VITALS: BP 139/61
[2019-12-30] VITALS (7 sets, daily range): BP systolic 120–185; BP diastolic 51–80
[2019-12-30 13:57] LABS: ABSOLUTE BASOPHILS 0.1 thou/uL (0.0-0.2); ABSOLUTE EOSINOPHILS 0.2 thou/uL (0.0-0.7); ABSOLUTE LYMPHOCYTES 1.2 thou/uL (0.8-5.3); ABSOLUTE MONOCYTES 0.5 thou/uL (0.0-1.2); ABSOLUTE NEUTROPHILS 4.2 thou/uL (1.6-8.1); EOSINOPHILS 2.7 %; HEMATOCRIT 38.7 % (42.0-52.0); HEMOGLOBIN 12.7 gm/dL (14.0-18.0); LYMPHOCYTES 20.1 %; MCH 29.6 pg (26.0-34.0); MCHC 32.8 g/dL (28.0-37.0); MCV 90.3 fL (80.0-100.0); MONOCYTES 8.1 %; MPV 7.6 fl. (7.2-11.1); NUCLEATED RBCS 0 /100WBC; PLATELET COUNT* 185 thou/uL (150-400); POLYS 68.1 %; RBC 4.28 mil/uL (4.50-6.00); RDW-CV 13.7 % (10.5-14.5); WBC 6.2 thou/uL (4.0-11.0)
[2019-12-30 14:13] LABS: CALCIUM 7.7 mg/dL (8.5-10.1); CREATININE 1.3 mg/dL (0.6-1.3); POTASSIUM 3.8 mmol/L (3.5-5.1); TOTAL BILIRUBIN 0.9 mg/dL (<0.1-1.0); TOTAL PROTEIN 5.6 g/dL (6.4-8.2)
[2019-12-31] VITALS: BP 123/51
[2019-12-31 04:00] VITALS: BP 138/60; BP 97/37
[2019-12-31 08:00] VITALS: BP 147/56
--- NOTE | 2019-12-31 08:54 | EKG ---
[place] [address] ELECTROCARDIOGRAM REPORT Name: DANIELLA ANDRES Room: [address] ADM IN ..#: [id number] Admission: 12/29/19 Attend Phys: Amol Sky Discharge: Date of : 32 Date of Service: 12/29/19 0829 Report #: [id number] THIS REPORT FOR: //name// [facility] ED Test Date: 2019-12-29 Test Time: 08:29:58 Pat Name: DANIELLA ANDRES Department: Room: [facility] Gender: M Teacher Asst: RYLEY : 1930 Requested By: Arsalan Canas Order Number: [id number] MD: Jose Juan Roland Measurements Intervals [place] Rate: 54 P: 41 MT: 184 QRS: 39 QRSD: 99 T: 28 QT: 482 QTc: 457 Interpretive Statements Sinus rhythm Compared to ECG 05/03/2019 07:17:28 Sinus bradycardia no longer present Electronically Signed On 12-31-2019 8:54:45 PLATE FINISHER by Jose Juan Roland [email or web address] <ELECTRONICALLY SIGNED> By: Katy Roland MD, [facility] 12/31/1952 8 8 Katy Roland MD, [facility] /EPI
[2019-12-31 09:38] VITALS: BP 147/56
[2019-12-31] MEDS ORDERED: FLAGYL500 M1 PO (11:26)
[2019-12-31 14:02] VITALS: BP 147/56
--- NOTE | 2020-01-03 15:07 | PATH ---
[address] [address] PATHOLOGY RPT PROCEDURE Name: SANDICHINMAY IZQUIERDO Room: [address] IN M.R.#: [id number] Admission: 12/29/19 Date of : 32 Discharge: 12/31/19 Report #: [id number] Path Case #: [id number] LCA Accession Number: [id number] . 01 Material submitted: . colon - ASCENDING COLON POLYP. Modifiers: ascending . 01 Clinician provided ICD-10: A04.9 K50.90 . 01 Clinical history: . CHRONS DISEASE . 02 Diagnosis: Ascending colon polyp: - Tubular adenoma, negative for high grade dysplasia. (KYLE/db; 01/03/2020) LBQ 01/03/2020 1257 Local . 02 Electronically signed: . Jf Anderson MD, Pathologist NPI- [id number] . 01 Gross description: . The specimen is received in formalin, labeled "Kwamel, Chinmay", "ascending colon polyp". Received are 2 polypoid segments of pale ramirez soft tissue measuring 0.1 and 0.4 cm. The specimen is entirely submitted in cassette A1.(SNA; 01/01/2020) ZOYA/JEANA 01/01/2020 1632 Local . 02 Pathologist provided ICD-10: D12.2 . 02 CPT . 208429 Specimen Comment: A courtesy copy of this report has been sent to [phone] Specimen Comment: [phone], Specimen Comment: Report sent to ,DR CANALES / DR PELAEZ Performed at: [address], [place] [address] MD Malik Bates MD Phone: [phone] Performed at: 02 [facility] [address], [place], [place] [address] MD Jf Anderson MD Phone: [phone]
== END 2019-12-31 14:48 | disposition home or self-care (01) | DRG 394 ==
LOC: M.ERS 08:22 → M.2W 10:38 → M.TBA-ER 10:38 → M.2W 16:03
PROVIDERS: Emergency Medicine Emergency Medical Services; ADMIT Internal Medicine; ATTEND Internal Medicine
PROC: 0DBK8ZZ Excision of Ascending Colon, Via Natural or Artificial Opening Endoscopic (ICD-10-PCS; principal; 2019-12-31)
DX: K55.039 Acute (reversible) ischemia of large intestine, extent unspecified (principal); K50.919 Crohn's disease, unspecified, with unspecified complications; I10 Essential (primary) hypertension; E78.5 Hyperlipidemia, unspecified; I25.10 Atherosclerotic heart disease of native coronary artery without angina pectoris; K57.30 Diverticulosis of large intestine without perforation or abscess without bleeding; K64.8 Other hemorrhoids; G25.81 Restless legs syndrome; I73.9 Peripheral vascular disease, unspecified; I48.91 Unspecified atrial fibrillation; D12.6 Benign neoplasm of colon, unspecified; Z20.828 Contact with and (suspected) exposure to other viral communicable diseases; Z96.651 Presence of right artificial knee joint; I25.2 Old myocardial infarction; Z90.49 Acquired absence of other specified parts of digestive tract; Z95.1 Presence of aortocoronary bypass graft; Z79.899 Other long term (current) drug therapy; Z86.73 Personal history of transient ischemic attack (TIA), and cerebral infarction without residual deficits

== ENCOUNTER → 2020-02-12 | Outpatient (CLI) | payer MEDICARE, OTHER ==
[~2020-02-12] MED LIST changes: +ASA81BEC PO; +FLAGYL500 M1 PO; +FLONASE 0.05%50 MCG NARES
== END ==
LOC: M.CT 08:02
PROVIDERS: ATTEND Nurse Practitioner Family
DX: M19.072 Primary osteoarthritis, left ankle and foot (principal); M89.8X7 Other specified disorders of bone, ankle and foot; M77.32 Calcaneal spur, left foot

== ENCOUNTER 2020-02-21 17:14 | Emergency (ER) | payer MEDICARE, OTHER ==
[~2020-02-21] VITALS: Ht 172.7 cm; Wt 81.7 kg
[2020-02-21 18:00] LABS: APTT 25.3 Seconds (25.0-31.3); CALCIUM 8.3 mg/dL (8.5-10.1); CREATININE 1.6 mg/dL (0.6-1.3); INR 1.1; POTASSIUM 4.4 mmol/L (3.5-5.1); PROTIME 11.8 Seconds (9.20-11.50)
[2020-02-21 18:22] LABS: ABSOLUTE BASOPHILS 0.1 thou/uL (0.0-0.2); ABSOLUTE EOSINOPHILS 0.3 thou/uL (0.0-0.7); ABSOLUTE LYMPHOCYTES 1.7 thou/uL (0.8-5.3); ABSOLUTE MONOCYTES 0.6 thou/uL (0.0-1.2); ABSOLUTE NEUTROPHILS 2.9 thou/uL (1.6-8.1); ALBUMIN 3.3 g/dL (3.4-5.0); BASOPHILS 1.2 %; CK-MB MASS 1.6 ng/mL (<0.5-3.6); EOSINOPHILS 5.6 %; HEMATOCRIT 37.1 % (42.0-52.0); HEMOGLOBIN 12.3 gm/dL (14.0-18.0); LYMPHOCYTES 30.1 %; MCH 29.8 pg (26.0-34.0); MCHC 33.2 g/dL (28.0-37.0); MCV 89.8 fL (80.0-100.0); MONOCYTES 11.1 %; MPV 7.9 fl. (7.2-11.1); NUCLEATED RBCS 0 /100WBC; PLATELET COUNT* 185 thou/uL (150-400); RBC 4.13 mil/uL (4.50-6.00); RDW-CV 13.6 % (10.5-14.5); TOTAL BILIRUBIN 0.5 mg/dL (<0.1-1.0); TOTAL PROTEIN 5.9 g/dL (6.4-8.2); WBC 5.5 thou/uL (4.0-11.0)
[2020-02-21 18:40] VITALS: BP 117/58
--- NOTE | 2020-02-24 10:34 | EKG ---
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 : 1930 Requested By: Amol Handy Order Number: [id number] MD: Sinan Moise Measurements Intervals [place] Rate: 56 P: 45 DC: 186 QRS: 32 QRSD: 106 T: 42 QT: 493 QTc: 476 Interpretive Statements Sinus bradycardia Abnormal inferior Q waves Borderline prolonged QT interval Compared to ECG 12/29/2019 08:29:58 no change Electronically Signed On 02-24-2020 10:34:18 CHEMICAL ANALYTICAL SAMPLER by Sinan Moise [email or web address] <ELECTRONICALLY SIGNED> By: Sinan Moise MD, FAC 02/24/20 1034 1723 1723 Sinan Moise MD, LOCATED WITHIN [facility] /EPI
== END 2020-02-21 18:40 | disposition home or self-care (01) ==
LOC: M.ERS 17:14
PROVIDERS: Family Medicine
DX: R41.82 Altered mental status, unspecified (principal); I10 Essential (primary) hypertension; Z95.1 Presence of aortocoronary bypass graft; Z90.49 Acquired absence of other specified parts of digestive tract; Z79.82 Long term (current) use of aspirin; Z79.899 Other long term (current) drug therapy; Z20.828 Contact with and (suspected) exposure to other viral communicable diseases

== ENCOUNTER 2020-04-17 18:01 | Inpatient (IN) | payer MEDICARE, OTHER ==
[~2020-04-17] VITALS: Ht 170.2 cm; Wt 82.6 kg
[2020-04-17 18:42] LABS: ABSOLUTE BASOPHILS 0.1 thou/uL (0.0-0.2); ABSOLUTE EOSINOPHILS 0.3 thou/uL (0.0-0.7); ABSOLUTE LYMPHOCYTES 1.4 thou/uL (0.8-5.3); ABSOLUTE MONOCYTES 0.5 thou/uL (0.0-1.2); ABSOLUTE NEUTROPHILS 3.1 thou/uL (1.6-8.1); BASOPHILS 1.3 %; EOSINOPHILS 6.1 %; HEMATOCRIT 41.1 % (42.0-52.0); HEMOGLOBIN 13.7 gm/dL (14.0-18.0); LYMPHOCYTES 26.3 %; MCH 30.1 pg (26.0-34.0); MCHC 33.4 g/dL (28.0-37.0); MCV 90.3 fL (80.0-100.0); MONOCYTES 9.1 %; MPV 7.7 fl. (7.2-11.1); NUCLEATED RBCS 0 /100WBC; PLATELET COUNT* 184 thou/uL (150-400); POLYS 57.2 %; RBC 4.55 mil/uL (4.50-6.00); RDW-CV 13.8 % (10.5-14.5); WBC 5.5 thou/uL (4.0-11.0)
[2020-04-17 18:49] VITALS: BP 190/75
[2020-04-17 18:51] LABS: CALCIUM 8.5 mg/dL (8.5-10.1); CREATININE 1.2 mg/dL (0.6-1.3); POTASSIUM 4.4 mmol/L (3.5-5.1)
[2020-04-17 18:55] LABS: ALBUMIN 3.4 g/dL (3.4-5.0); TOTAL BILIRUBIN 0.4 mg/dL (<0.1-1.0); TOTAL PROTEIN 6.2 g/dL (6.4-8.2)
[2020-04-17 19:00] LABS: APTT 25.2 Seconds (25.0-31.3); INR 1.1; PROTIME 11.9 Seconds (9.20-11.50)
[2020-04-17 19:05] LABS: URINE BILIRUBIN NEGATIVE (Negative); URINE BLOOD NEGATIVE (Negative); URINE CLARITY CLEAR; URINE COLOR YELLOW; URINE GLUCOSE-RANDOM NEGATIVE (Negative); URINE KETONES NEGATIVE (Negative); URINE LEUKOCYTES-REFLEX NEGATIVE (Negative); URINE NITRITE-REFLEX NEGATIVE (Negative); URINE PROTEIN 1+ (Negative); URINE UROBILINOGEN 0.2 E.U./dl (0.2-1.0)
[2020-04-17 20:07] VITALS: BP 151/65
[2020-04-17 20:30] VITALS: BP 215/95
[2020-04-18] VITALS (7 sets, daily range): BP systolic 114–191; BP diastolic 55–89
--- NOTE | 2020-04-18 02:48 | NUR ---
PT ADMIT TO 231 AT 2030. PT ORIENTED TO PERSON. PT STOOD AT BS WITH ASSIST. TELEMETRY SHOWS SR. ELISE PLACED IN ED. INITAL BP 215/95 DR BRAMBILA NOTIFIED HYDRALAZINE GIVEN. BP DOWN TO 145/57.
--- NOTE | 2020-04-18 07:05 | NUR ---
CHANGE OF SHIFT BEDSIDE REPORT GIVEN PATIENT SEEN AT BEDSIDE, IN BED ASLEEP ASSUMED PATIENT CARE
--- NOTE | 2020-04-18 09:55 | NUR ---
CM SPOKE TO THE PT TO DISCUSS CM ASSESSMENT. PT ALERT, BUT FORGETFUL. PT'S SPOUSE AT THE BEDSIDE AND ANSWERING SM ASSESSMENT QUESTIONS FOR PT. PT RESIDES AT HOME WITH SPOUSE AND SHE DOES ALL COOKING, CLEANING, AND DRIVING FOR THE HOUSEHOOLD. PT NORMALLY INDEPENDENT WITH ADL'S. PT USES WALKER AND CANE FOR MOBILITY. PT HAS PAST HX OF HH, BUT SPOUSE COULD NOT REMEMBER THE NAME. PT HAS 0 HX OF SNF. CM WILL REMAIN AVAILABLE TO ASSIST AND FOLLOW NEEDED.
[2020-04-18 10:17] LABS: ALBUMIN 3.4 g/dL (3.4-5.0); CALCIUM 9.2 mg/dL (8.5-10.1); POTASSIUM 4.4 mmol/L (3.5-5.1); TOTAL BILIRUBIN 0.7 mg/dL (<0.1-1.0); TOTAL PROTEIN 5.8 g/dL (6.4-8.2)
[2020-04-19] VITALS: BP 145/69
--- NOTE | 2020-04-19 01:16 | NUR ---
PT ORIENTED X 2. PT IMPULSIVE GETS OOB OCCASIONALLY. TELEMTRY SHOWS SR. BP WNL FOR PT. ON RA. DENIES PAIN. INCONTINENT OF URINE.
[2020-04-19 04:00] VITALS: BP 169/75
[2020-04-19 05:20] LABS: CHOLESTEROL 118 mg/dL (<200); HDL CHOLESTEROL 47 mg/dL (>40); LDL CHOLESTEROL 54 mg/dL (<100); TC:HDL 2.5 Ratio (Not establshd); TRIGLYCERIDE 88 mg/dL (<150); VLDL 18 mg/dL (<40)
[2020-04-19 05:23] LABS: SERUM ASSESSMENT Clear
[2020-04-19 05:36] LABS: GLYCOHEMOGLOBIN (HGB A1C) 5.9 % (4.8-5.6)
--- NOTE | 2020-04-19 07:10 | NUR ---
CHANGHE OF SHIFT BEDSIDE REPORT GIVEN PATIENT SEEN AT BEDSIDE, IN BED ASLEEP ASSUMED PATIENT CARE
[2020-04-19 08:00] VITALS: BP 136/55
--- NOTE | 2020-04-19 09:15 | CON ---
[address] [address] CONSULTATION Name: DANIELLA ANDRES Room: [address] ADM IN M.R.#: [id number] Admission: 04/17/20 Attend Phys: Do Camacho MD Discharge: Date of : 32 Report #: [id number] THIS REPORT FOR: cc: Andressa Douglas Maggie M. DO ~ Jing Grant DO DATE OF SERVICE: 04/18/2020 NEUROLOGY CONSULT HISTORY OF PRESENT ILLNESS: The patient is an 89-year-old male who was unable to provide history to me. Fortunately, his was in the room and she told me that yesterday he was sitting in a chair and then fell to the floor. He was confused and had difficulty speaking. His called the ambulance and he was brought to the Emergency Room. The patient was not a candidate for TPA as he is on Eliquis and the CT of his head was normal. When the patient came to the Emergency Room, his blood pressure was elevated. The initial blood pressure reading was 190/75. Approximately 2 hours later, the blood pressure reached a peak of 215/95. His tells me that she takes his pressure at home periodically and the systolic pressure is usually in the 130s or 140s. She has no idea why it has become high. She thinks his medication might need to be adjusted. She states that he had a stroke in 2004 that is when he had the right carotid endarterectomy. Ever since that time, he has never used his left arm properly. She states it is "just like it is not there." She has not noticed any symptoms in his legs. The patient uses a walker to ambulate. Over time, his balance has become worse. He does not have a history of diabetes. He does not have numbness or tingling in his feet. PAST MEDICAL HISTORY: Atrial fibrillation, coronary artery disease, hypertension, hyperlipidemia and restless legs. PAST SURGICAL HISTORY: Cholecystectomy, coronary artery bypass graft, right knee replacement and right carotid endarterectomy. MEDICATIONS: At home, ropinirole 3 mg b.i.d., Eliquis 2.5 mg b.i.d., Crestor 40 mg at bedtime, benazepril 10 mg daily, furosemide 20 mg p.r.n., aspirin 81 mg daily and fluticasone nasal spray p.r.n. ALLERGIES: None. PHYSICAL EXAMINATION: VITAL SIGNS: Temperature 36.6, pulse rate 62, respiratory rate 18, [place] [address] CONSULTATION Name: DANIELLA ANDRES Room: [address] IN ..#: [id number] Admission: 04/17/20 Attend Phys: Do Camacho MD Discharge: Date of : 32 Report #: [id number] pressure 159/75 and bedside pulse oximetry 98% on room air. NEUROLOGIC: Mentation, the patient knew that it was 04/2020. He did not know what hospital he was in, he did not know what city he was in, he did know that he was in [place] and lived in the [place]. Cranial nerves 2-12 are grossly intact. Motor exam demonstrates symmetrical strength in the arms and legs. He was able to lift both arms over the head and each leg off the bed equally. Reflexes are absent. There is no evidence of dysmetria on examination. LABORATORY DATA: Hematology: White blood cell count 5.5, hemoglobin 13.7, hematocrit 41.1, MCV 90.3 and platelet count 184,000. INR 1.1. Urinalysis, 1+ protein. Chemistry: Sodium 140, potassium 4.4, chloride 105, carbon dioxide 29, BUN 16, creatinine 1, glucose 71 and calcium 9.2. Liver functions normal. B12 pending. COVID negative. IMAGING: Carotid Dopplers demonstrate no hemodynamically significant stenosis. CT scan of the head demonstrates extensive microvascular disease, no acute findings. 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 He may need to have his blood pressure medications adjusted. Fortunately, his takes his pressure at home and will be able to continue to monitor this once he is discharged. He will need follow up with his primary care provider. 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 I have checked a B12, when he was here in late 2019 his level was 348, which is below 400 and below 400 neurological symptoms can occur. If his level is still below 400, then I will give him some B12 supplementation and he may require B12 by mouth. He will need to follow up again with his primary care provider to monitor his B12 level and make sure it goes over 400. To complete the dementia workup, I will also order a TSH. When this was checked in late 2019, it was normal, but I do think it warrants repeating. I thank you for your kind referral of this patient. <ELECTRONICALLY SIGNED> By: Jing Grant DO 04/19/20 0915 1332 2017Jing Grant DO /nt
[2020-04-19 12:00] VITALS: BP 123/56
[2020-04-19 16:00] VITALS: BP 156/60
[2020-04-19 21:02] VITALS: BP 182/71
[2020-04-20] VITALS: BP 112/67
[2020-04-20 04:00] VITALS: BP 140/64
[2020-04-20 08:00] VITALS: BP 121/54
--- NOTE | 2020-04-20 10:36 | EKG ---
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
[2020-04-20 12:19] VITALS: BP 129/48
--- NOTE | 2020-04-20 13:34 | 2DMMODE ---
[place] [address] 2 D/M-MODE ECHOCARDIOGRAM Name: DANIELLA ANDRES Room: [address] IN M.R.#: [id number] Admission: 04/17/20 Attend Phys: Do Camacho, Discharge: Date of : 32 Date of Service: 04/20/20 1334 Report #: [id number] THIS REPORT FOR: cc: Andressa Douglas Maggie M. DO Blick, David R. MD [facility] ~ APPROVED REPORT Study performed: 04/20/2020 11:15:35 EXAM: Comprehensive 2D, Doppler, and color-flow Echocardiogram Patient Location: In-Patient Room #: [facility] Status: routine BSA: 1.94 HR: 65 bpm BP: 121/54 mmHg Rhythm: NSR Other Information Study Quality: Good Indications CVA/TIA Echo Enhancing Agent Indication: Rule out Shunt Agent(s) / Amount(s) Used: Agitated Saline 10 cc 2D Dimensions IVSd: 11.76 (7-11mm) LVOT Diam: 20.67 (18-24mm) LVDd: 48.38 mm PWd: 11.27 (7-11mm) Ascending Ao: 36.50 (22-36mm) LVDs: 22.75 (25-40mm) Aortic Root: 35.28 mm Volumes Left Atrial Volume (Systole) LA ESV Index: 19.40 mL/m2 Aortic Valve AoV Peak Keny.: 1.22 m/s AO Peak Gr.: 5.98 mmHg LVOT Max P.48 mmHg AO Mean Gr.: 3.67 mmHg LVOT Mean P.39 [place] [address] 2 D/M-MODE ECHOCARDIOGRAM Name: DANIELLA ANDRES Room: [address] IN M.R.#: [id number] Admission: 04/17/20 Attend Phys: Do Camacho, Discharge: Date of : 32 Date of Service: 04/20/20 1334 Report #: [id number] LVOT Max V: 1.17 m/s AO V2 VTI: 23.10 cm LVOT Mean V: 0.88 m/s LOUISE (VTI): 3.62 cm2 LVOT V1 VTI: 24.89 cm Mitral Valve E/A Ratio: 0.68 MV Decel. Time: 269.35 ms MV E Max Keny.: 0.50 m/s MV PHT: 78.11 ms MVA (PHT): 2.82 cm2 TDI E/Lateral E': 8.33 E/Medial E': 6.25 Medial E' Keny.: 0.08 m/s Lateral E' Keny.: 0.06 m/s Pulmonary Valve PV Peak Keny.: 0.78 m/s PV Peak Gr.: 2.45 mmHg Left Ventricle The left ventricle is normal size. There is normal LV segmental wall motion. Mild concentric left ventricular hypertrophy. Left ventricular systolic function is normal. The left ventricular ejection fraction is within the normal range. LVEF is 60-65%. Grade I - abnormal relaxation pattern. Right Ventricle The right ventricle is normal size. The right ventricular systolic function is normal. Atria The left atrium size is normal. The interatrial septum is intact with no evidence for an atrial septal defect. The right atrium size is normal. Aortic Valve The aortic valve is normal in structure. Mild aortic regurgitation. There is no aortic valvular stenosis. Mitral Valve The mitral valve is normal in structure. There is no mitral valve regurgitation noted. No evidence of mitral valve stenosis. Tricuspid Valve The tricuspid valve is normal in structure. Trace tricuspid regurgitation. Unable [place] [address] 2 D/M-MODE ECHOCARDIOGRAM Name: DANIELLA ANDRES Room: [address] IN M.R.#: [id number] Admission: 04/17/20 Attend Phys: Do Camacho, Discharge: Date of : 32 Date of Service: 04/20/20 1334 Report #: [id number] Pulmonic Valve Pulmonic valve is not well visualized. There is no pulmonic valvular regurgitation. Great Vessels The aortic root is normal in size. IVC is not well visualized. Pericardium There is no pericardial effusion. <Conclusion> Mild concentric left ventricular hypertrophy. LVEF is 60-65%. The interatrial septum is intact with no evidence for an atrial septal defect. <ELECTRONICALLY SIGNED> By: Sinan Moise MD, [facility] 04/20/20 1334 1334 1334 Sinan Moise MD, FACC /INF
--- NOTE | 2020-04-20 14:45 | NUR ---
CM INFORMED DURING PRIME ROUNDING OF THE PLAN OF CARE FOR THE PT. PLAN FOR THE PT TO D/C HOME TODAY WITH SELF-CARE AND NO CM D/C PLANNING NEEDS. PT IN AGREEMENT WITH THIS PLAN. CM WILL REMAIN AVAILABLE TO ASSIST AND FOLLOW NEEDED.
[2020-04-20 14:49] VITALS: BP 129/48
--- NOTE | 2020-04-20 15:19 | NUR ---
PATIENT AND GIVEN DISCHARGE INSTRUCTIONS AND MEDICATIONS REVIEWED. NO NEW PRESCRIPTIONS ORDERED. PATIENT TO F/U WITH DR. CANTU IN 2 WEEKS (ADDRESS AND PHONE NUMBER PROVIDED). PATIENT A&OX4 THIS SHIFT HOWEVER FORGETS LIMITATIONS, IS AT TIMES CONFUSED AND IMPULSIVE. PATIENT DENIES PAIN/QUESTIONS/CONCERNS PRIOR TO DISCHARGE. IV REMOVED. PATIENT LEFT UNIT VIA WHEELCHAIR WITH PERSONAL BELONGINGS, ACCOMPANIED BY AND NURSING STAFF AT APPROX. 1518.
[2020-04-20 15:24] VITALS: BP 129/48
== END 2020-04-20 15:18 | disposition home or self-care (01) | DRG 64 ==
LOC: M.ERS 18:01 → M.TBA-ER 18:46 → M.2W 18:46
PROVIDERS: Family Medicine; Internal Medicine; ADMIT Internal Medicine; ATTEND Internal Medicine
DX: I63.9 Cerebral infarction, unspecified (principal); G93.41 Metabolic encephalopathy; I16.0 Hypertensive urgency; E78.5 Hyperlipidemia, unspecified; I10 Essential (primary) hypertension; I25.10 Atherosclerotic heart disease of native coronary artery without angina pectoris; M19.90 Unspecified osteoarthritis, unspecified site; F01.50 Vascular dementia, unspecified severity, without behavioral disturbance, psychotic disturbance, mood disturbance, and anxiety; G25.81 Restless legs syndrome; I48.91 Unspecified atrial fibrillation; Z20.822 Contact with and (suspected) exposure to COVID-19; Z96.651 Presence of right artificial knee joint; Z86.73 Personal history of transient ischemic attack (TIA), and cerebral infarction without residual deficits; Z90.49 Acquired absence of other specified parts of digestive tract; Z95.1 Presence of aortocoronary bypass graft; I25.2 Old myocardial infarction; Z79.01 Long term (current) use of anticoagulants; Z79.899 Other long term (current) drug therapy; Z79.82 Long term (current) use of aspirin; Z28.21 Immunization not carried out because of patient refusal; Z95.5 Presence of coronary angioplasty implant and graft

== ENCOUNTER 2020-04-23 17:58 | Inpatient (IN) | payer MEDICARE, OTHER ==
[~2020-04-23] VITALS: Ht 170.2 cm; Wt 81.9 kg
[2020-04-23 18:08] VITALS: BP 209/78
[2020-04-23 19:18] LABS: ABSOLUTE BASOPHILS 0.1 thou/uL (0.0-0.2); ABSOLUTE EOSINOPHILS 0.4 thou/uL (0.0-0.7); ABSOLUTE LYMPHOCYTES 1.3 thou/uL (0.8-5.3); ABSOLUTE MONOCYTES 0.5 thou/uL (0.0-1.2); ABSOLUTE NEUTROPHILS 2.5 thou/uL (1.6-8.1); EOSINOPHILS 8.4 %; HEMOGLOBIN 12.3 gm/dL (14.0-18.0); LYMPHOCYTES 27.3 %; MCH 30.3 pg (26.0-34.0); MCHC 33.3 g/dL (28.0-37.0); MCV 90.8 fL (80.0-100.0); MONOCYTES 10.7 %; MPV 7.7 fl. (7.2-11.1); NUCLEATED RBCS 0 /100WBC; PLATELET COUNT* 193 thou/uL (150-400); POLYS 51.6 %; RBC 4.08 mil/uL (4.50-6.00); WBC 4.8 thou/uL (4.0-11.0)
[2020-04-23 19:23] LABS: CALCIUM 8.2 mg/dL (8.5-10.1); POTASSIUM 4.3 mmol/L (3.5-5.1)
[2020-04-23 19:27] LABS: ALBUMIN 3.1 g/dL (3.4-5.0); TOTAL BILIRUBIN 0.3 mg/dL (<0.1-1.0)
[2020-04-23 20:32] LABS: URINE BILIRUBIN NEGATIVE (Negative); URINE BLOOD 1+ (Negative); URINE CLARITY CLEAR; URINE COLOR YELLOW; URINE GLUCOSE-RANDOM NEGATIVE (Negative); URINE KETONES NEGATIVE (Negative); URINE LEUKOCYTES-REFLEX NEGATIVE (Negative); URINE NITRITE-REFLEX NEGATIVE (Negative); URINE PROTEIN TRACE (Negative); URINE UROBILINOGEN 0.2 E.U./dl (0.2-1.0)
[2020-04-23 20:37] LABS: SQUAMOUS NONE SEEN /LPF (0-3); URINE RBC 0-2 Rare /HPF (0-2); URINE WBC-REFLEX None Seen /HPF (0-5)
[2020-04-23 20:38] LABS: BACTERIA-REFLEX 1-9 Few /HPF (None Seen); CASTS None Seen /LPF (None Seen); CRYSTALS None Seen /LPF (None Seen); MUCUS None Seen strn/LPF (None Seen)
[2020-04-23 21:00] VITALS: BP 202/82
[2020-04-23 21:18] VITALS: BP 170/76
[2020-04-23 23:40] VITALS: BP 140/60
[2020-04-24] VITALS (14 sets, daily range): BP systolic 123–211; BP diastolic 52–92
[2020-04-24 09:21] LABS: CALCIUM 8.9 mg/dL (8.5-10.1); CREATININE 1.1 mg/dL (0.6-1.3); POTASSIUM 3.9 mmol/L (3.5-5.1)
[2020-04-24 09:24] LABS: MAGNESIUM 2.2 mg/dL (1.8-2.4); PHOSPHORUS* 2.9 mg/dL (2.5-4.9)
--- NOTE | 2020-04-24 10:15 | EKG ---
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 : 1930 Requested By: Miriam Goel Order Number: [id number] MD: Sinan Moise Measurements Intervals [place] Rate: 54 P: 49 OR: 191 QRS: 16 QRSD: 100 T: 51 QT: 470 QTc: 446 Interpretive Statements Sinus bradycardia Baseline wander in lead(s) V6 Compared to ECG 04/17/2020 18:42:51 Atrial premature complex(es) no longer present Electronically Signed On 04-24-2020 10:14:47 CDT by Sinan Moise [email or web address] <ELECTRONICALLY SIGNED> By: Sinan Moise MD, FACC 04/24/20 1014 1838 1838 Sinan Moise MD, [facility] /EPI
[2020-04-25] VITALS (8 sets, daily range): BP systolic 108–150; BP diastolic 45–62
[2020-04-26] VITALS: BP 141/52
[2020-04-26 04:22] VITALS: BP 142/59
[2020-04-26 08:30] VITALS: BP 151/64
[2020-04-26 11:30] VITALS: BP 114/54
[2020-04-26 16:03] VITALS: BP 150/54
[2020-04-26 20:00] VITALS: BP 104/48
[2020-04-27] VITALS: BP 133/53
[2020-04-27 04:42] LABS: CALCIUM 8.2 mg/dL (8.5-10.1); CREATININE 1.4 mg/dL (0.6-1.3); MAGNESIUM 2.2 mg/dL (1.8-2.4); POTASSIUM 3.8 mmol/L (3.5-5.1)
[2020-04-27 04:45] VITALS: BP 166/76
[2020-04-27 08:36] VITALS: BP 160/61
--- NOTE | 2020-04-27 10:41 | CON ---
[address] [address] CONSULTATION Name: DANIELLA ANDRES Room: [address] IN [place].#: [id number] Admission: 04/23/20 Attend Phys: Trever Martinez, Discharge: Date of : 32 Report #: [id number] THIS REPORT FOR: cc: Andressa Douglas Maggie M. DO ~ Sinan Moise MD [facility] DATE OF SERVICE: 04/26/2020 CARDIOLOGY CONSULTATION HISTORY OF PRESENT ILLNESS: The patient is a 89-year-old white male who I was asked to see in the hospital today after he complained of elevated blood pressure. The patient has a long history of heart disease. He has had previous coronary stents placed in 2004 in [place], [place]. He was admitted with atrial fibrillation in the past, has been on sotalol and Eliquis. He was actually admitted last week after he had a syncopal spell in the kitchen. He was evaluated and sent home. However, the next day, the took his blood pressure and it was elevated. He complained of his legs being weak. She brought him here to the hospital 3 days ago. The patient has been confused. The was having difficulty caring for the patient. He uses a walker and has memory loss. He gets up during the middle of night. PAST MEDICAL HISTORY: He has had knee surgery, cholecystectomy, hypertension, previous stroke. He has bronchitis. CURRENT MEDICATIONS: Consist of Requip, Eliquis, Crestor, Lotensin, Lasix, aspirin. ALLERGIES: He has no known drug allergies. FAMILY HISTORY: Negative for heart disease. SOCIAL HISTORY: He is . He and his live in [place]. No smoking or alcohol abuse. REVIEW OF SYSTEMS: He has had a previous stroke. He has had a previous carotid endarterectomy. No history of asthma or liver disease. 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 No cancer. No psychiatrics. No chronic skin condition. PHYSICAL EXAMINATION: GENERAL: Revealed an elderly, frail-appearing male who appeared in no acute distress. VITAL SIGNS: Blood pressure is 140/60, pulse 60[place] [address] CONSULTATION Name: DANIELLA ANDRES Room: [address]#: [id number] Admission: 04/23/20 Attend Phys: Trever Martinez, Discharge: Date of : 32 Report #: [id number] HEENT: He was anicteric. Conjunctivae pink. Mucous membranes dry. NECK: Veins do not appear distended. CHEST: Clear to auscultation. CARDIOVASCULAR: Regular rate and rhythm, no murmur. ABDOMEN: Soft. EXTREMITIES: Had no pitting edema. SKIN: Cool and dry. RADIOLOGICAL DATA: His ECG on admission showed a sinus bradycardia. There was no QT prolongation. His workup, the patient had an echocardiogram done last week that showed an ejection fraction 60%, left ventricular hypertrophy. No evidence of a shunt on bubble study. His recent chest x-ray showed tortuous aorta, otherwise, clear lung tavarez. He had carotid Doppler study performed last week that showed previous carotid endarterectomy, some plaquing, but no significant stenosis. He had a CT scan of the head that showed no acute abnormality, small vessel changes. Previous chronic infarction. He had renal ultrasound performed that showed soft tissue mass. LABORATORY DATA: Sodium 142, BUN 18, creatinine 1.1. Liver function studies were normal. Troponins all 0.06. His TSH 1.1. White blood cell count 4.8, hematocrit 37. IMPRESSION AND RECOMMENDATIONS: 1. Atrial fibrillation. Rate noted to be slow. I would discontinue sotalol. I would continue anticoagulation with Eliquis. 2. Previous stent. No recent angina. Since the patient on Eliquis, I have not recommend aspirin. 3. Dementia. 4. Hypertension. The patient is on angiotensin-converting enzyme inhibitor and beta-joann. 6. Restless leg syndrome. 7. Hyperlipidemia. The patient is on a statin drug. <ELECTRONICALLY SIGNED> By: Sinan Moise MD, FACC 04/27/20 1041 0950 [id number] Moise MD, FACC /nt
[2020-04-27 12:50] VITALS: BP 160/61
[2020-04-27] MEDS ORDERED: NORVASC5 MG PO (13:35)
== END 2020-04-27 13:52 | disposition home health service (06) | DRG 305 ==
LOC: M.ERS 17:58 → M.TBA-ER 20:09 → M.2W 20:09
PROVIDERS: Internal Medicine; Physician Assistant; ADMIT Family Medicine; ATTEND Family Medicine
DX: I16.0 Hypertensive urgency (principal); F01.51 Vascular dementia, unspecified severity, with behavioral disturbance; D68.69 Other thrombophilia; I48.20 Chronic atrial fibrillation, unspecified; M17.0 Bilateral primary osteoarthritis of knee; E86.0 Dehydration; M19.072 Primary osteoarthritis, left ankle and foot; M19.071 Primary osteoarthritis, right ankle and foot; R00.1 Bradycardia, unspecified; I73.9 Peripheral vascular disease, unspecified; E78.5 Hyperlipidemia, unspecified; G25.81 Restless legs syndrome; I48.0 Paroxysmal atrial fibrillation; N28.89 Other specified disorders of kidney and ureter; I25.10 Atherosclerotic heart disease of native coronary artery without angina pectoris; Z20.822 Contact with and (suspected) exposure to COVID-19; Z96.651 Presence of right artificial knee joint; Z90.49 Acquired absence of other specified parts of digestive tract; Z95.1 Presence of aortocoronary bypass graft; Z86.73 Personal history of transient ischemic attack (TIA), and cerebral infarction without residual deficits; I25.2 Old myocardial infarction; Z95.5 Presence of coronary angioplasty implant and graft; Z79.01 Long term (current) use of anticoagulants; Z79.82 Long term (current) use of aspirin; Z79.899 Other long term (current) drug therapy; Z28.89 Immunization not carried out for other reason

== ENCOUNTER 2020-08-04 08:29 | Emergency (ER) | payer MEDICARE, OTHER ==
[~2020-08-04] VITALS: Ht 170.2 cm; Wt 83.9 kg
[~2020-08-04 08:29] MED LIST changes: +NORVASC5 MG PO
[2020-08-04] MEDS ORDERED: B-12 COMPL1000 MCG/1 IM (08:44)
[2020-08-04 09:00] LABS: ABSOLUTE BASOPHILS 0.1 thou/uL (0.0-0.2); ABSOLUTE EOSINOPHILS 0.2 thou/uL (0.0-0.7); ABSOLUTE LYMPHOCYTES 0.5 thou/uL (0.8-5.3); ABSOLUTE MONOCYTES 0.6 thou/uL (0.0-1.2); ABSOLUTE NEUTROPHILS 3.6 thou/uL (1.6-8.1); BASOPHILS 1.4 %; EOSINOPHILS 4.8 %; HEMOGLOBIN 13.4 gm/dL (14.0-18.0); MCH 30.3 pg (26.0-34.0); MCHC 33.5 g/dL (28.0-37.0); MCV 90.4 fL (80.0-100.0); MONOCYTES 12.8 %; MPV 7.5 fl. (7.2-11.1); NUCLEATED RBCS 0 /100WBC; PLATELET COUNT* 189 thou/uL (150-400); RBC 4.43 mil/uL (4.50-6.00); WBC 5.1 thou/uL (4.0-11.0)
[2020-08-04 09:09] LABS: CALCIUM 8.3 mg/dL (8.5-10.1); CREATININE 1.3 mg/dL (0.6-1.3); POTASSIUM 4.4 mmol/L (3.5-5.1)
[2020-08-04 09:20] LABS: ALBUMIN 3.6 g/dL (3.4-5.0); TOTAL BILIRUBIN 0.7 mg/dL (<0.1-1.0); TOTAL PROTEIN 6.6 g/dL (6.4-8.2)
[2020-08-04 09:28] LABS: URINE BILIRUBIN NEGATIVE (Negative); URINE BLOOD NEGATIVE (Negative); URINE CLARITY CLEAR; URINE COLOR YELLOW; URINE GLUCOSE-RANDOM NEGATIVE (Negative); URINE KETONES NEGATIVE (Negative); URINE LEUKOCYTES-REFLEX NEGATIVE (Negative); URINE NITRITE-REFLEX NEGATIVE (Negative); URINE PROTEIN 2+ (Negative); URINE UROBILINOGEN 0.2 E.U./dl (0.2-1.0)
[2020-08-04 09:36] LABS: SQUAMOUS 0-3 Few /LPF (0-3)
[2020-08-04 09:37] LABS: AMORPHOUS PHOSPHATES Few /LPF (None Seen); HYALINE CASTS 0-3 Few /LPF (None Seen); MUCUS 4-6 Moderate strn/LPF (None Seen); URINE RBC 0-2 Rare /HPF (0-2); URINE WBC-REFLEX 0-5 Rare /HPF (0-5)
[2020-08-04] MEDS ORDERED: PREDNISONE 20 M20 M1 PO (09:39)
[2020-08-04] MEDS ORDERED: ZPAK PO (09:39)
[2020-08-04] MEDS ORDERED: VENTOLIN HFA 1818 GM INH (09:39)
[2020-08-04 09:50] VITALS: BP 120/84
--- NOTE | 2020-08-04 14:44 | EKG ---
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1930 Requested By: Amol Handy Order Number: [id number] MD: Remington Drummond Measurements Intervals [place] Rate: 75 P: 54 MS: 185 QRS: 40 QRSD: 90 T: 43 QT: 386 QTc: 432 Interpretive Statements Sinus rhythm Inferior Q waves noted Compared to ECG 04/23/2020 18:38:16 Sinus bradycardia no longer present javascript:perform('study_confirm'); Electronically Signed On 08-04-2020 14:44:00 CDT by Remington Drummond [email or web address] <ELECTRONICALLY SIGNED> By: Remington Drummond MD, FACC 08/04/20 1444 0842 0842 Remington Drummond MD, FACC /EPI
== END 2020-08-04 09:50 | disposition home or self-care (01) ==
LOC: M.ERS 08:29
PROVIDERS: Family Medicine
DX: J40 Bronchitis, not specified as acute or chronic (principal); E78.5 Hyperlipidemia, unspecified; G25.81 Restless legs syndrome; I25.10 Atherosclerotic heart disease of native coronary artery without angina pectoris; Z95.1 Presence of aortocoronary bypass graft; Z96.651 Presence of right artificial knee joint; Z90.49 Acquired absence of other specified parts of digestive tract; Z86.73 Personal history of transient ischemic attack (TIA), and cerebral infarction without residual deficits

== ENCOUNTER 2020-08-07 10:33 | Inpatient (IN) | payer MEDICARE, OTHER ==
[~2020-08-07] VITALS: Ht 152.4 cm; Wt 84.1 kg
[~2020-08-07 10:33] MED LIST changes: +B-12 COMPL1000 MCG/1 IM; +PREDNISONE 20 M20 M1 PO; +VENTOLIN HFA 1818 GM INH; +ZPAK PO
[2020-08-07 10:45] VITALS: BP 196/114
[2020-08-07 11:34] LABS: ABSOLUTE BASOPHILS 0.1 thou/uL (0.0-0.2); ABSOLUTE LYMPHOCYTES 0.6 thou/uL (0.8-5.3); ABSOLUTE MONOCYTES 0.4 thou/uL (0.0-1.2); ABSOLUTE NEUTROPHILS 5.7 thou/uL (1.6-8.1); BASOPHILS 0.9 %; EOSINOPHILS 0.1 %; HEMATOCRIT 40.9 % (42.0-52.0); HEMOGLOBIN 14.1 gm/dL (14.0-18.0); LYMPHOCYTES 8.5 %; MCH 31.2 pg (26.0-34.0); MCHC 34.5 g/dL (28.0-37.0); MCV 90.2 fL (80.0-100.0); MONOCYTES 5.9 %; MPV 7.6 fl. (7.2-11.1); NUCLEATED RBCS 0 /100WBC; PLATELET COUNT* 191 thou/uL (150-400); POLYS 84.6 %; RBC 4.54 mil/uL (4.50-6.00); RDW-CV 13.1 % (10.5-14.5); WBC 6.7 thou/uL (4.0-11.0)
[2020-08-07 11:43] LABS: CALCIUM 8.5 mg/dL (8.5-10.1); CREATININE 1.4 mg/dL (0.6-1.3); POTASSIUM 3.7 mmol/L (3.5-5.1)
[2020-08-07 11:53] LABS: ALBUMIN 3.8 g/dL (3.4-5.0); MAGNESIUM 2.2 mg/dL (1.8-2.4); TOTAL BILIRUBIN 0.6 mg/dL (<0.1-1.0)
--- NOTE | 2020-08-07 15:55 | EKG ---
[place] [address] ELECTROCARDIOGRAM REPORT Name: DANIELLA ANDRES Room: [place] [address] ADM IN [facility].#: [id number] Admission: 08/07/20 Attend Phys: Marv Mayers, Discharge: Date of : 34 Date of Service: 08/07/20 1108 Report #: [id number] THIS REPORT FOR: //name// [facility] ED Test Date: 2020-08-07 Test Time: 11:08:56 Pat Name: DANIELLA ANDRES Department: Room: [facility] Gender: M Field Radio Operator: RYLEY : 1930 Requested By: Arsalan Canas Order Number: [id number] MD: Sinan Moise Measurements Intervals [place] Rate: 94 P: 43 NM: 175 QRS: 34 QRSD: 98 T: 18 QT: 368 QTc: 461 Interpretive Statements Sinus rhythm Abnormal R-wave progression, early transition Borderline T abnormalities, anterior leads Compared to ECG 08/04/2020 08:42:58 T-wave abnormality now present Electronically Signed On 08-07-2020 15:55:06 CDT by Sinan Moise [email or web address] <ELECTRONICALLY SIGNED> By: Sinan Moise MD, [facility] 08/07/20 1555 1108 1108 Sinan Moise MD, [facility] /EPI
[2020-08-07 16:28] VITALS: BP 113/45
--- NOTE | 2020-08-07 17:18 | EKG ---
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: RYLEY : 1930 Requested By: Arsalan Canas Order Number: [id number] Reading MD: Remington Drummond Measurements Intervals [place] Rate: 145 P: [place]: QRS: 39 QRSD: 82 T: 229 QT: 265 QTc: 412 Interpretive Statements Atrial fibrillation with rapid V-rate Repolarization abnormality, prob rate related Compared to ECG 08/07/2020 11:08:56 Early repolarization now present Sinus rhythm no longer present T-wave abnormality no longer present Electronically Signed On 08-07-2020 17:18:12 CDT by Remington Drummond [email or web address] <ELECTRONICALLY SIGNED> By: Remington Drummond MD, [facility] 08/07/20 1718 1158 1158 Remington Drummond MD, [facility] /EPI
[2020-08-07 18:35] VITALS: BP 120/67
[2020-08-07 18:37] LABS: URINE BILIRUBIN NEGATIVE (Negative); URINE BLOOD NEGATIVE (Negative); URINE CLARITY CLEAR; URINE COLOR YELLOW; URINE GLUCOSE-RANDOM NEGATIVE (Negative); URINE KETONES NEGATIVE (Negative); URINE LEUKOCYTES-REFLEX NEGATIVE (Negative); URINE NITRITE-REFLEX NEGATIVE (Negative); URINE PROTEIN TRACE (Negative); URINE SPECIFIC GRAVITY <= 1.005 (1.005-1.030); URINE UROBILINOGEN 0.2 E.U./dl (0.2-1.0)
[2020-08-07 18:51] VITALS: BP 116/72
[2020-08-07 20:30] VITALS: BP 112/44
[2020-08-08] VITALS: BP 137/82
[2020-08-08 04:00] VITALS: BP 156/78
[2020-08-08 08:29] LABS: HEMATOCRIT 38.5 % (42.0-52.0); HEMOGLOBIN 13.2 gm/dL (14.0-18.0); MCH 30.7 pg (26.0-34.0); MCHC 34.4 g/dL (28.0-37.0); MCV 89.3 fL (80.0-100.0); MPV 7.8 fl. (7.2-11.1); NUCLEATED RBCS 0 /100WBC; PLATELET COUNT* 193 thou/uL (150-400); RBC 4.31 mil/uL (4.50-6.00); RDW-CV 13.1 % (10.5-14.5); WBC 6.2 thou/uL (4.0-11.0)
[2020-08-08 08:42] LABS: CALCIUM 8.2 mg/dL (8.5-10.1); CREATININE 1.5 mg/dL (0.6-1.3); POTASSIUM 3.8 mmol/L (3.5-5.1)
[2020-08-08 09:19] LABS: ABSOLUTE LYMPHOCYTES 0.4 thou/uL (0.8-5.3); ABSOLUTE MONOCYTES 0.1 thou/uL (0.0-1.2); ABSOLUTE NEUTROPHILS 5.7 thou/uL (1.6-8.1); PLATELET ESTIMATE ADEQUATE
--- NOTE | 2020-08-08 11:42 | EKG ---
[place] [address] ELECTROCARDIOGRAM REPORT Name: DANIELLA ANDRES Room: [address] ADM IN .R.#: [id number] Admission: 08/07/20 Attend Phys: Marv Mayers, Discharge: Date of : 34 Date of Service: 08/08/20 0844 Report #: [id number] THIS REPORT FOR: //name// [facility] Test Date: 2020-08-08 Test Time: 08:44:24 Pat Name: DANIELLA ANDRES Department: Room: [address] Gender: M Generation Engineering Technologist: Souleymane GLEASON : 1930 Requested By: Marv Mayers Order Number: [id number] Reading MD: Sinan Moise Measurements Intervals [place] Rate: 127 P: [place]: QRS: 25 QRSD: 92 T: -34 QT: 339 QTc: 493 Interpretive Statements Atrial fibrillation Probable inferior infarct, age indeterminate Baseline wander in lead(s) V2,V3 Compared to ECG 08/07/2020 11:58:48 rate has slowed Electronically Signed On 08-08-2020 11:42:06 CDT by Sinan Moise [email or web address] <ELECTRONICALLY SIGNED> By: Sinan Moise MD, [facility] 08/08/20 1142 0844 0844 Sinan Moise MD, [facility] /EPI
--- NOTE | 2020-08-08 11:42 | CON ---
[place] [address] CONSULTATION Name: DANIELLA ANDRES Room: [address] ADM IN [place].#: [id number] Admission: 08/07/20 Attend Phys: Marv Mayers MD Discharge: Date of : 34 Report #: [id number] THIS REPORT FOR: cc: Andressa Douglas Maggie M. DO Blick, David R. MD [facility] ~ DOC #: [id number] cc: DO Sinan Restrepo MD [facility] DATE OF CONSULTATION: 08/07/2020 CARDIOLOGY CONSULTATION HISTORY OF PRESENT ILLNESS: The patient is an 89-year-old white male who was last seen in the hospital after he was noted to be in atrial fibrillation. The patient used to live near [place], [place]. More than 10 years ago, he presented there with confusion and imbalance. He was felt to have a stroke. He subsequently underwent right carotid endarterectomy. Also, about 10 years ago, he had knee replacement in [place], [place]. Apparently, following surgery, he had chest pain and was found to be having a myocardial infarction and had a coronary stent placed. He has done well since that time. He was admitted to [facility] in April following a syncopal spell. He had a history of atrial fibrillation and has been on sotalol. He was taken off the sotalol because of bradycardia. He has been on chronic anticoagulation with Eliquis. The patient is not very active and uses a walker. The last few days he has been having increasing shortness of breath and a cough. He has chronic edema. He has felt lightheaded. His finally brought him to the Emergency Room today and he was admitted for further evaluation and treatment. He denies any recent chest pain, palpitations, or syncope. PAST MEDICAL HISTORY: He has had cholecystectomy, prostate surgery, and knee replacement. Apparently, a previous CT scan showed a benign growth on his kidney. He has a history of hypertension, hyperlipidemia, and restless legs syndrome. CURRENT MEDICATIONS: Include Eliquis, aspirin, Lotensin, Lasix, Requip, and Crestor. 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 FAMILY HISTORY: Negative for heart disease. SOCIAL HISTORY: He is . He and his now live in [place], [place]. No smoking [place] [address] CONSULTATION Name: DANIELLA ANDRES Room: [address] IN [facility]#: [id number] Admission: 08/07/20 Attend Phys: Marv Mayers MD Discharge: Date of : 34 Report #: [id number] REVIEW OF SYSTEMS: He has used inhaler in the past when he was exposed to dust. No history of liver disease, kidney disease, cancer, psychiatric illness, or chronic skin condition. PHYSICAL EXAMINATION: GENERAL: Revealed an elderly male, appeared in mild distress secondary to shortness of breath. VITAL SIGNS: Blood pressure is 130/60, pulse initially was 140. He was placed on intravenous diltiazem. HEENT: He was anicteric. Conjunctivae pink. Mucosa membranes are moist. NECK: Veins not appear distended. No carotid bruits. CHEST: Expiratory wheezes. CARDIAC: Irregular, tachycardia. No significant murmur. ABDOMEN: Distended, but soft. EXTREMITIES: Had trace edema. Dorsalis pedis pulse, 1+ bilaterally. SKIN: Cool and dry. NEUROLOGIC: Nonfocal. DIAGNOSTIC DATA: His electrocardiogram on admission showed a sinus rhythm with nonspecific ST-segment changes. Followup ECG showed atrial fibrillation with rapid ventricular response rate. His echocardiogram in April showed an ejection fraction of 60%. No evidence of shunt. Mild aortic insufficiency, left ventricular hypertrophy. Previous carotid Doppler showed no significant stenosis. 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 His workup in the Emergency Room today, he had a portable chest x-ray that showed normal heart size, clear lung tavarez. The patient had a previous CT scan of the head performed in April because of confusion that showed no acute abnormality, small vessel changes. Carotid Doppler study in April showed plaque, but no significant stenosis. LABORATORY DATA: Sodium 133, potassium 3.7, and creatinine is 1.4; it has been as high as 1.6 in 2019. His liver function studies were normal. His TSH in April was 1.1. His white blood cell count 6.7 and hemoglobin 14.1. His COVID antigen stat test is pending. IMPRESSION AND RECOMMENDATIONS: 1. Atrial fibrillation. Previous history of atrial fibrillation, on sotalol. Having developed bradycardia and was subsequently discontinued. I would continue chronic anticoagulation with Eliquis. At this time, I would aim for rate control with diltiazem. 2. Bronchitis with bronchospasm. 3. Hypertension. The patient has been on UMER inhibitor. 4. Lower extremity edema. Suspect venous insufficiency. The patient is on [address] [address] CONSULTATION Name: DANIELLA ANDRES Room: [address] IN .[place].#: [id number] Admission: 08/07/20 Attend Phys: Marv Mayers MD Discharge: Date of : 34 Report #: [id number] Lasix. 5. Restless legs syndrome. 6. Hyperlipidemia. The patient is on a statin drug. 7. Coronary artery disease, previous stent. No recent angina. 8. Thoracic aortic aneurysm noted. 9. Memory loss. 10. Chronic kidney disease. Sinan Moise MD [facility] JOHNSON/ANGY/RYAN <ELECTRONICALLY SIGNED> By: Sinan Moise MD, [facility] 08/08/20 1142 1342 [id number] Moise MD, MARINO /nt
[2020-08-08 12:45] VITALS: BP 112/46
[2020-08-08 16:45] VITALS: BP 116/59
[2020-08-08 20:00] VITALS: BP 119/60
[2020-08-09] VITALS: BP 121/54
[2020-08-09 04:00] VITALS: BP 121/53
[2020-08-09 08:00] VITALS: BP 107/62
[2020-08-09 08:36] LABS: ABSOLUTE LYMPHOCYTES 0.6 thou/uL (0.8-5.3); ABSOLUTE MONOCYTES 0.8 thou/uL (0.0-1.2); ABSOLUTE NEUTROPHILS 14.5 thou/uL (1.6-8.1); HEMATOCRIT 35.6 % (42.0-52.0); HEMOGLOBIN 12.4 gm/dL (14.0-18.0); LYMPHOCYTES 3.5 %; MCH 30.7 pg (26.0-34.0); MCHC 34.7 g/dL (28.0-37.0); MCV 88.5 fL (80.0-100.0); MPV 7.7 fl. (7.2-11.1); NUCLEATED RBCS 0 /100WBC; PLATELET COUNT* 197 thou/uL (150-400); POLYS 91.5 %; RBC 4.02 mil/uL (4.50-6.00); RDW-CV 13.3 % (10.5-14.5); WBC 15.8 thou/uL (4.0-11.0)
[2020-08-09 08:50] LABS: ALBUMIN 3.3 g/dL (3.4-5.0); CALCIUM 8.3 mg/dL (8.5-10.1); POTASSIUM 4.5 mmol/L (3.5-5.1); TOTAL BILIRUBIN 0.5 mg/dL (<0.1-1.0); TOTAL PROTEIN 5.9 g/dL (6.4-8.2)
[2020-08-09 12:00] VITALS: BP 116/41
[2020-08-09 16:00] VITALS: BP 138/65
[2020-08-09 20:00] VITALS: BP 135/59
[2020-08-10] VITALS: BP 109/67
[2020-08-10 04:00] VITALS: BP 152/65
[2020-08-10 04:13] LABS: ABSOLUTE LYMPHOCYTES 0.7 thou/uL (0.8-5.3); ABSOLUTE MONOCYTES 1.2 thou/uL (0.0-1.2); ABSOLUTE NEUTROPHILS 13.9 thou/uL (1.6-8.1); BASOPHILS 0.1 %; HEMATOCRIT 38.7 % (42.0-52.0); HEMOGLOBIN 13.1 gm/dL (14.0-18.0); LYMPHOCYTES 4.7 %; MCH 30.4 pg (26.0-34.0); MCV 89.6 fL (80.0-100.0); MONOCYTES 7.3 %; MPV 7.9 fl. (7.2-11.1); NUCLEATED RBCS 0 /100WBC; PLATELET COUNT* 220 thou/uL (150-400); POLYS 87.9 %; RBC 4.32 mil/uL (4.50-6.00); RDW-CV 13.2 % (10.5-14.5); WBC 15.9 thou/uL (4.0-11.0)
[2020-08-10 04:27] LABS: ALBUMIN 3.3 g/dL (3.4-5.0); CALCIUM 8.3 mg/dL (8.5-10.1); TOTAL BILIRUBIN 0.5 mg/dL (<0.1-1.0); TOTAL PROTEIN 6.1 g/dL (6.4-8.2)
[2020-08-10 08:00] VITALS: BP 132/58
[2020-08-10 12:00] VITALS: BP 157/51
[2020-08-10 16:00] VITALS: BP 157/64
[2020-08-10 20:00] VITALS: BP 149/73
[2020-08-11] VITALS (8 sets, daily range): BP systolic 117–163; BP diastolic 54–73
[2020-08-11 04:33] LABS: HEMATOCRIT 37.1 % (42.0-52.0); HEMOGLOBIN 12.6 gm/dL (14.0-18.0); MCH 30.5 pg (26.0-34.0); MCV 89.7 fL (80.0-100.0); RBC 4.13 mil/uL (4.50-6.00); RDW-CV 13.1 % (10.5-14.5); WBC 9.1 thou/uL (4.0-11.0)
[2020-08-11 04:37] LABS: CALCIUM 8.1 mg/dL (8.5-10.1); CREATININE 1.7 mg/dL (0.6-1.3); POTASSIUM 4.4 mmol/L (3.5-5.1)
[2020-08-11] MEDS ORDERED: PACERONE 200 M200 M1 PO (10:10)
[2020-08-11] MEDS ORDERED: MUCINEX600 MG PO (10:16)
[2020-08-11] MEDS ORDERED: AMIODARONE HCL400 MG PO (10:23)
--- NOTE | 2020-08-11 10:27 | EKG ---
[place] [address] ELECTROCARDIOGRAM REPORT Name: DANIELLA ANDRES Room: [address] ADM [place] .R.#: [id number] Admission: 08/07/20 Attend Phys: Marv Mayers, Discharge: Date of : 34 Date of Service: 08/11/20 0942 Report #: [id number] THIS REPORT FOR: //name// [facility] Test Date: 2020-08-11 Test Time: 09:42:58 Pat Name: DANIELLA ANDRES Department: Room: [address] Gender: M Occupational Therapy Asst: SHERI : 1930 Requested By: Sinan Moise Order Number: [id number] Reading MD: Sinan Moise Measurements Intervals [place] Rate: 74 P: 58 [place]: 187 QRS: 41 QRSD: 95 T: 42 QT: 538 QTc: 597 Interpretive Statements Sinus rhythm Nonspecific T abnormalities, anterior leads Prolonged QT interval Compared to ECG 08/08/2020 08:44:24 T-wave abnormality now present Prolonged QT interval now present Atrial fibrillation no longer present Electronically Signed On 08-11-2020 10:27:19 CDT by Sinan Moise [email or web address] <ELECTRONICALLY SIGNED> By: Sinan Moise MD, [facility] 08/11/20 1027 Sinan Moise MD, [facility] /EPI
[2020-08-12] VITALS: BP 123/70
[2020-08-12 04:00] VITALS: BP 124/62
[2020-08-12 08:00] VITALS: BP 147/67
--- NOTE | 2020-08-12 11:17 | EKG ---
[place] [address] ELECTROCARDIOGRAM REPORT Name: DANIELLA ANDRES Room: [address] ADM IN .R.#: [id number] Admission: 08/07/20 Attend Phys: Marv Mayers, Discharge: Date of : 34 Date of Service: 08/12/20 1027 Report #: [id number] THIS REPORT FOR: //name// [facility] Test Date: 2020-08-12 Test Time: 10:27:20 Pat Name: DANIELLA ANDRES Department: Room: [address] Gender: M Talent Development Consultant: : 1930 Requested By: Sinan Moise Order Number: [id number] Reading MD: Sinan Moise Measurements Intervals [place] Rate: 64 P: 57 NE: 196 QRS: 35 QRSD: 92 T: -59 QT: 522 QTc: 539 Interpretive Statements Sinus rhythm Abnormal R-wave progression, early transition Probable inferior infarct, age indeterminate Lateral leads are also involved Prolonged QT interval Baseline wander in lead(s) II,III,aVR,aVL,aVF,V3,V5,V6 Compared to ECG 08/11/2020 09:42:58 no change Electronically Signed On 08-12-2020 11:16:50 CDT by Sinan Moise [email or web address] <ELECTRONICALLY SIGNED> By: Sinan Moise MD, [facility] 08/12/20 1116 1027 1027 Sinan Moise MD, [facility] /EPI
[2020-08-12 13:05] VITALS: BP 108/57
[2020-08-12 14:03] VITALS: BP 108/57
[2020-08-12 15:35] VITALS: BP 108/57
== END 2020-08-12 15:30 | disposition home health service (06) | DRG 308 ==
LOC: M.ERS 10:33 → M.TBA-ER 12:11 → M.2W 12:11
PROVIDERS: Emergency Medicine Emergency Medical Services; Family Medicine; ADMIT Internal Medicine; ATTEND Internal Medicine
DX: I48.20 Chronic atrial fibrillation, unspecified (principal); J96.01 Acute respiratory failure with hypoxia; F03.90 Unspecified dementia, unspecified severity, without behavioral disturbance, psychotic disturbance, mood disturbance, and anxiety; N18.9 Chronic kidney disease, unspecified; R41.0 Disorientation, unspecified; Z20.822 Contact with and (suspected) exposure to COVID-19; Z96.651 Presence of right artificial knee joint; E78.5 Hyperlipidemia, unspecified; M17.0 Bilateral primary osteoarthritis of knee; M19.072 Primary osteoarthritis, left ankle and foot; M19.071 Primary osteoarthritis, right ankle and foot; I12.9 Hypertensive chronic kidney disease with stage 1 through stage 4 chronic kidney disease, or unspecified chronic kidney disease; I25.10 Atherosclerotic heart disease of native coronary artery without angina pectoris; G25.81 Restless legs syndrome; I71.2 Thoracic aortic aneurysm, without rupture; R41.3 Other amnesia; J20.9 Acute bronchitis, unspecified; Z90.49 Acquired absence of other specified parts of digestive tract; Z95.1 Presence of aortocoronary bypass graft; Z86.73 Personal history of transient ischemic attack (TIA), and cerebral infarction without residual deficits; I25.2 Old myocardial infarction; Z95.5 Presence of coronary angioplasty implant and graft; Z79.899 Other long term (current) drug therapy

== ENCOUNTER 2020-08-21 18:19 | Emergency (ER) | payer MEDICARE, OTHER ==
[~2020-08-21] VITALS: Ht 167.6 cm; Wt 81.7 kg
[~2020-08-21 18:19] MED LIST changes: +AMIODARONE HCL400 MG PO; +PACERONE 200 M200 M1 PO
[2020-08-21 19:54] LABS: ABSOLUTE EOSINOPHILS 0.2 thou/uL (0.0-0.7); ABSOLUTE MONOCYTES 0.5 thou/uL (0.0-1.2); ABSOLUTE NEUTROPHILS 4.9 thou/uL (1.6-8.1); BASOPHILS 0.3 %; EOSINOPHILS 2.8 %; HEMATOCRIT 32.4 % (42.0-52.0); HEMOGLOBIN 11.1 gm/dL (14.0-18.0); LYMPHOCYTES 15.6 %; MCH 31.1 pg (26.0-34.0); MCHC 34.3 g/dL (28.0-37.0); MCV 90.8 fL (80.0-100.0); MONOCYTES 7.7 %; MPV 6.9 fl. (7.2-11.1); NUCLEATED RBCS 0 /100WBC; PLATELET COUNT* 248 thou/uL (150-400); POLYS 73.6 %; RBC 3.57 mil/uL (4.50-6.00); RDW-CV 12.9 % (10.5-14.5); WBC 6.7 thou/uL (4.0-11.0)
[2020-08-21 20:06] LABS: CALCIUM 7.7 mg/dL (8.5-10.1); CREATININE 1.4 mg/dL (0.6-1.3); POTASSIUM 3.9 mmol/L (3.5-5.1)
[2020-08-21 20:10] LABS: ALBUMIN 2.5 g/dL (3.4-5.0); TOTAL BILIRUBIN 0.3 mg/dL (<0.1-1.0); TOTAL PROTEIN 5.9 g/dL (6.4-8.2)
[2020-08-21 20:43] LABS: URINE BILIRUBIN NEGATIVE (Negative); URINE BLOOD NEGATIVE (Negative); URINE CLARITY CLEAR; URINE COLOR YELLOW; URINE GLUCOSE-RANDOM NEGATIVE (Negative); URINE KETONES NEGATIVE (Negative); URINE LEUKOCYTES-REFLEX NEGATIVE (Negative); URINE NITRITE-REFLEX NEGATIVE (Negative); URINE PROTEIN NEGATIVE (Negative); URINE SPECIFIC GRAVITY <= 1.005 (1.005-1.030); URINE UROBILINOGEN 0.2 E.U./dl (0.2-1.0)
[2020-08-21] MEDS ORDERED: DOXYCYCLINE 10100 MG PO (21:45)
[2020-08-21] MEDS ORDERED: ZPAK PO (21:51)
[2020-08-21] MEDS ORDERED: AUGMENTIN 875-1 EACH PO (21:51)
[2020-08-21 22:04] VITALS: BP 141/70
--- NOTE | 2020-08-22 11:01 | EKG ---
[place] [address] ELECTROCARDIOGRAM REPORT Name: DANIELLA ANDRES Room: [facility]#: [id number] Admission: 08/21/20 Attend Phys: Discharge: Date of : 34 Date of Service: 08/21/201940 Report #: [id number] THIS REPORT FOR: //name// [facility] ED Test Date: 2020-08-21 Test Time: 19:41:31 Pat Name: DANIELLA ANDRES Department: Room: Gender: Installation Engineer: STEWART : 1930 Requested By: Miriam Goel Order Number: [id number] MD: Reynold Gardner Measurements Intervals [place] Rate: 63 P: 39 [place]: 214 QRS: 28 QRSD: 103 T: 40 QT: 453 QTc: 464 Interpretive Statements Sinus rhythm Borderline prolonged [place] interval Borderline T abnormalities, anterior leads Compared to ECG 08/12/2020 10:27:20 T-wave abnormality now present Myocardial infarct finding no longer present QT interval has shortened Electronically Signed On 08-22-2020 11:01:46 CDT by Reynold Gardner [email or web address] <ELECTRONICALLY SIGNED> By: Reynold Gardner MD, FACC 08/22/20 1101 40 40 Reynold Gardner MD, FAC /EPI
== END 2020-08-21 22:05 | disposition home or self-care (01) ==
LOC: M.ERS 18:19
PROVIDERS: Physician Assistant
DX: J18.8 Other pneumonia, unspecified organism (principal); I10 Essential (primary) hypertension; E78.5 Hyperlipidemia, unspecified; I25.10 Atherosclerotic heart disease of native coronary artery without angina pectoris; Z86.73 Personal history of transient ischemic attack (TIA), and cerebral infarction without residual deficits; Z79.899 Other long term (current) drug therapy

== ENCOUNTER → 2020-09-07 | Outpatient (CLI) | payer MEDICARE, OTHER ==
[~2020-09-07] MED LIST changes: +AUGMENTIN 875-1 EACH PO; +DOXYCYCLINE 10100 MG PO
[2020-09-07 15:04] LABS: ABSOLUTE BASOPHILS 0.1 thou/uL (0.0-0.2); ABSOLUTE EOSINOPHILS 0.1 thou/uL (0.0-0.7); ABSOLUTE LYMPHOCYTES 1.2 thou/uL (0.8-5.3); ABSOLUTE MONOCYTES 0.5 thou/uL (0.0-1.2); ABSOLUTE NEUTROPHILS 3.1 thou/uL (1.6-8.1); BASOPHILS 1.5 %; EOSINOPHILS 1.9 %; HEMATOCRIT 36.1 % (42.0-52.0); HEMOGLOBIN 11.9 gm/dL (14.0-18.0); MCH 30.1 pg (26.0-34.0); MCHC 33.1 g/dL (28.0-37.0); MCV 91.1 fL (80.0-100.0); MPV 7.2 fl. (7.2-11.1); NUCLEATED RBCS 0 /100WBC; PLATELET COUNT* 232 thou/uL (150-400); POLYS 61.6 %; RBC 3.96 mil/uL (4.50-6.00); RDW-CV 14.2 % (10.5-14.5)
[2020-09-07 15:10] LABS: CALCIUM 7.9 mg/dL (8.5-10.1); CREATININE 1.6 mg/dL (0.6-1.3); POTASSIUM 4.2 mmol/L (3.5-5.1)
[2020-09-07 15:15] LABS: ALBUMIN 3.2 g/dL (3.4-5.0); TOTAL BILIRUBIN 0.3 mg/dL (<0.1-1.0); TOTAL PROTEIN 6.2 g/dL (6.4-8.2)
== END ==
LOC: M.RAD 14:44
PROVIDERS: ATTEND Family Medicine
DX: R14.0 Abdominal distension (gaseous) (principal); R11.10 Vomiting, unspecified; Z87.01 Personal history of pneumonia (recurrent); J18.9 Pneumonia, unspecified organism

== ENCOUNTER → 2020-09-25 | Outpatient (CLI) | payer MEDICARE, OTHER | LOC: M.MRI 08:22 | PROVIDERS: ATTEND Physician Assistant Medical | DX: S83.62XA Sprain of the superior tibiofibular joint and ligament, left knee, initial encounter (principal); S96.812A Strain of other specified muscles and tendons at ankle and foot level, left foot, initial encounter; M25.472 Effusion, left ankle; M19.072 Primary osteoarthritis, left ankle and foot; M86.672 Other chronic osteomyelitis, left ankle and foot; I48.91 Unspecified atrial fibrillation; M47.814 Spondylosis without myelopathy or radiculopathy, thoracic region; X58.XXXA Exposure to other specified factors, initial encounter; Y93.89 Activity, other specified; Y92.89 Other specified places as the place of occurrence of the external cause; Y99.8 Other external cause status ==

== ENCOUNTER → 2020-10-27 | Outpatient (CLI) | payer MEDICARE, OTHER | LOC: M.RAD 09:23 | PROVIDERS: ATTEND Orthopaedic Surgery Foot and Ankle Surgery | DX: M25.572 Pain in left ankle and joints of left foot (principal); G89.29 Other chronic pain; I10 Essential (primary) hypertension; I25.10 Atherosclerotic heart disease of native coronary artery without angina pectoris; I48.91 Unspecified atrial fibrillation; J44.9 Chronic obstructive pulmonary disease, unspecified; Z98.890 Other specified postprocedural states; Z79.899 Other long term (current) drug therapy; Z79.01 Long term (current) use of anticoagulants ==

== ENCOUNTER 2021-01-07 06:24 | Emergency (ER) | payer MEDICARE, OTHER ==
[~2021-01-07] VITALS: Ht 172.7 cm; Wt 75.8 kg
[2021-01-07 08:26] VITALS: BP 144/68
== END 2021-01-07 08:28 | disposition home or self-care (01) ==
LOC: M.ERS 06:24
DX: S00.83XA Contusion of other part of head, initial encounter (principal); S56.912A Strain of unspecified muscles, fascia and tendons at forearm level, left arm, initial encounter; D68.8 Other specified coagulation defects; I10 Essential (primary) hypertension; G25.81 Restless legs syndrome; M19.90 Unspecified osteoarthritis, unspecified site; Z90.49 Acquired absence of other specified parts of digestive tract; Z79.899 Other long term (current) drug therapy; W01.0XXA Fall on same level from slipping, tripping and stumbling without subsequent striking against object, initial encounter; Y93.89 Activity, other specified; Y92.89 Other specified places as the place of occurrence of the external cause; Y99.8 Other external cause status